=== PATIENT | female | born 1995 | race Caucasian/White ===

== ENCOUNTER 2021-05-17 19:36 | Emergency (ER) | payer OTHER, SELFPAY ==
--- NOTE | ~2021-05-17 | CT_ITS ---
EXAMINATION: CT ABDOMEN AND PELVIS WITH CONTRAST CLINICAL INFORMATION: Right lower quadrant abdominal pain COMPARISON: None TECHNIQUE: Multidetector volumetric images were obtained from the superior aspect of the liver through the pubic symphysis following administration 85 mL of Omnipaque 350 intravenous contrast. Sagittal and coronal reformatted images were obtained on the technologist's workstation. Oral contrast: No This CT examination was performed using dose optimization techniques as appropriate, variously including the following: *Automated exposure control *Adjustment of mA and/or kV according to patient size (this includes techniques or standardized protocols for targeted exams where dose is matched to indication/reason for exam; i.e. extremities or head) *Use of iterative reconstruction technique DLP: 352 mGy-cm FINDINGS: LUNG BASES: The visualized lung bases are unremarkable. LIVER, GALLBLADDER, AND BILIARY TREE: The liver is normal in size, shape, and attenuation. No focal hepatic lesion or biliary ductal dilatation is present. The gallbladder is unremarkable with no evidence of radiopaque gallstones, gallbladder wall thickening, or obvious pericholecystic inflammatory changes. PANCREAS: Unremarkable. SPLEEN: Unremarkable. ADRENAL GLANDS: Unremarkable. KIDNEYS AND URETERS: The kidneys are normal in size, shape, and attenuation. No hydronephrosis, hydroureter, or calculi seen. No perinephric stranding. BLADDER: Unremarkable. GASTROINTESTINAL TRACT: The stomach is unremarkable. Normal caliber small bowel. No obstruction. No colonic wall thickening or inflammatory change. Partial visualization of a normal appendix. No free air. Trace pelvic free fluid. ABDOMINAL WALL: No significant hernia is appreciated. LYMPH NODES: Normal. VASCULAR: Unremarkable. PELVIC VISCERA: Anteverted uterus with IUD in place. Multiple right ovarian follicles. OSSEOUS STRUCTURES: Unremarkable. CT/CT abdomen pelvis w con IMPRESSION: No acute finding in the abdomen or pelvis. Normal appendix. There are multiple right ovarian follicles noted with small amount of pelvic free fluid. Consider ruptured cyst.
[2021-05-17 20:11] VITALS: BP 121/93; PULSE 82; RESP 18; TEMP 37; O2SAT 98; BMI 22.6
--- NOTE | 2021-05-17 23:21 | ED_ITS ---
HPI - Abdominal Pain General Chief Complaint: Abdominal Pain Stated Complaint: abd pain Time Seen by Provider: 05/17/21 22:53 Source: patient Limitations: no limitations History of Present Illness HPI narrative: Patient with 2 days of right lower quadrant abdominal pain. Some nausea no vomiting. No diarrhea or constipation. No urinary symptoms. No vaginal bleeding or discharge. She has an IUD for the past 4 years. No causative or precipitating factors which she is aware. She has never had pain like this before. She denies chance of secondary to IUD Related Data Previous Rx's Medication Instructions Recorded ibuprofen 600 mg tablet 600 mg PO TID PRN #30 tab 05/18/21 Allergies Allergy/AdvReac Type Severity Reaction Status Date / Time latex [LATEX] Allergy Severe SWELLING Unverified 05/06/20 19:12 Review of Systems Constitutional: Denies fever(s) Comments: No chest pain Comments: No dyspnea at Gastrointestinal: Reports as per HPI Comments: No dysuria hesitancy frequency, vaginal bleeding or discharge Musculoskeletal: Reports no additional musculoskeletal complaints Physical Exam Vital Signs: Vital Signs: Last Vital Signs Temp 98.6 F 05/17/21 20:11 Pulse 82 05/17/21 20:11 Resp 18 05/17/21 20:11 BP 121/93 H 05/17/21 20:11 Pulse Ox 98 05/17/21 20:11 Body Mass Index 22.6 Const: Other: Awake and alert no acute distress Resp: Other: Clear and equal bilaterally Cardio: Other: Regular rate and rhythm no murmurs rubs or gallops GI: Other: Tender right lower quadrant with guarding and rebound Skin: Other: Warm pink and dry Course Course Course Narrative: Right lower quadrant abdominal pain. Appendicitis Urinary tract infection Ovarian cyst Ovarian torsion Ectopic IV normal saline IV Toradol IV Zofran 1:55 a.m.. Lab work is unremarkable with a normal white count. CT scan shows no evidence of appendicitis. There are right ovarian follicles with some pelvic free fluid, which in this setting likely represents ruptured ovarian cyst. Results explained to patient and reassured there is no dangerous pathology noted. Ibuprofen for discomfort and discharged home MDM - Abdominal Pain Lab Data Result diagrams: 05/18/21 00:27 05/18/21 00:27 Labs: Lab Results 05/18/21 05/18/21 05/18/21 Range/Units 00:27 00:27 00:29 WBC 10.4 (4.8-10.8) X10*3/uL RBC 5.40 (4.20-5.50) X10*6/uL Hgb 14.0 (12.0-16.0) g/dl Hct 42.8 (37-47) % MCV 79.3 L (80-98) fL MCH 25.9 L (27.0-33.0) pg MCHC 32.7 (31.0-35.0) g/dl RDW 13.0 (11.0-16.0) % Plt Count 175 (160-400) X10*3/uL MPV 12.0 (9.4-12.3) fL Immature Gran % (Auto) 0.3 (0.0-0.4) % Neut % (Auto) 57.1 (45-73) % Lymph % (Auto) 26.3 (20-40) % Todd % (Auto) 12.8 H (2-11) % Eos % (Auto) 3.0 (0-4) % Baso % (Auto) 0.5 (0-2) % Lymph # (Auto) 2.7 (1.2-4.9) X10*3/uL Todd # (Auto) 1.3 H (0.1-1.2) X10*3/uL Eos # (Auto) 0.3 (0.0-0.4) X10*3/uL Baso # (Auto) 0.1 (0.0-0.2) X10*3/uL Abs Immat Gran (auto) 0.03 (0.00-0.03) X10*3/uL Absolute Neuts (auto) 5.9 (2.0-8.3) X10*3/uL Absolute Nucleated RBC 0.000 (0.0-0.012) X10*3/uL Nucleated RBC % (auto) 0.0 (0.0-0.2) /100WBC Sodium 141 (135-145) mmol/L Potassium 3.8 (3.3-5.1) mmol/L Chloride 107 (96-108) mmol/L Carbon Dioxide 25 (22-29) mmol/L Anion Gap 13 (12-20) BUN 10 (9-16) mg/dL Creatinine 0.76 (0.5-1.4) mg/dL Estim Creat Clear Calc 89.4 Estimated GFR > 60 Random Glucose 91 (60-115) mg/dL Calcium 9.4 (8.4-10.2) mg/dL Total Bilirubin 0.5 (0.0-1.0) mg/dL AST 14 (5-31) U/L ALT 8 (0-31) U/L Alkaline Phosphatase 39 (39-117) U/L Total Protein 7.2 (6.5-8.0) g/dL Albumin 4.3 (3.5-5.0) g/dL Urine Color YELLOW Urine Appearance HAZY Urine pH 7.0 (5.0-8.0) Ur Specific [place] 1.020 (1.005-1.025) Urine Protein TRACE (NEG-TRACE) MG/DL Urine Glucose (UA) NEG (NEG) MG/DL Urine Ketones NEG (NEG) MG/DL Urine Blood 1+ H (NEG) Urine Nitrite NEG (NEG) Ur Leukocyte Esterase NEG (NEG) Urine RBC 5-9 H (0) /HPF Urine WBC 0-2 (0-4) /HPF Ur Squamous Epith Cells 2+ /LPF Urine Bacteria 1+ /LPF Urine Mucus 2+ /LPF Urine Test (NEGATIVE) 05/18/21 Range/Units 00:29 WBC (4.8-10.8) X10*3/uL RBC (4.20-5.50) X10*6/uL Hgb (12.0-16.0) g/dl Hct (37-47) % MCV (80-98) fL MCH (27.0-33.0) pg MCHC (31.0-35.0) g/dl RDW (11.0-16.0) % Plt Count (160-400) X10*3/uL MPV (9.4-12.3) fL Immature Gran % (Auto) (0.0-0.4) % Neut % (Auto) (45-73) % Lymph % (Auto) (20-40) % Todd % (Auto) (2-11) % Eos % (Auto) (0-4) % Baso % (Auto) (0-2) % Lymph # (Auto) (1.2-4.9) X10*3/uL Todd # (Auto) (0.1-1.2) X10*3/uL Eos # (Auto) (0.0-0.4) X10*3/uL Baso # (Auto) (0.0-0.2) X10*3/uL Abs Immat Gran (auto) (0.00-0.03) X10*3/uL Absolute Neuts (auto) (2.0-8.3) X10*3/uL Absolute Nucleated RBC (0.0-0.012) X10*3/uL Nucleated RBC % (auto) (0.0-0.2) /100WBC Sodium (135-145) mmol/L Potassium (3.3-5.1) mmol/L Chloride (96-108) mmol/L Carbon Dioxide (22-29) mmol/L Anion Gap (12-20) BUN (9-16) mg/dL Creatinine (0.5-1.4) mg/dL Estim Creat Clear Calc Estimated GFR Random Glucose (60-115) mg/dL Calcium (8.4-10.2) mg/dL Total Bilirubin (0.0-1.0) mg/dL AST (5-31) U/L ALT (0-31) U/L Alkaline Phosphatase (39-117) U/L Total Protein (6.5-8.0) g/dL Albumin (3.5-5.0) g/dL Urine Color Urine Appearance Urine pH (5.0-8.0) Ur Specific [place] (1.005-1.025) Urine Protein (NEG-TRACE) MG/DL Urine Glucose (UA) (NEG) MG/DL Urine Ketones (NEG) MG/DL Urine Blood (NEG) Urine Nitrite (NEG) Ur Leukocyte Esterase (NEG) Urine RBC (0) /HPF Urine WBC (0-4) /HPF Ur Squamous Epith Cells /LPF Urine Bacteria /LPF Urine Mucus /LPF Urine Test NEGATIVE (NEGATIVE) Discharge Plan Discharge Clinical Impression: Ovarian cyst Qualifiers: Laterality: right Qualified Code(s): N83.201 - Unspecified ovarian cyst, right side Patient Disposition: Home, Self-Care Instructions: Ovarian Cyst (ED) Prescriptions: New ibuprofen 600 mg tablet 600 mg PO TID PRN (Reason: pain) Qty: 30 RF: 0 Stand Alone Forms: Work/School Release PMFSH Social History Social History Advance Directives: No Advance Directives Information Provided: Yes Patient : No
[2021-05-18] MEDS: 0.9 % Sodium Chloride 500 ML IV (00:34)
[2021-05-18] MEDS: Ketorolac Tromethamine 15 MG/ML VIAL 30 MG IVPUSH (00:36)
[2021-05-18] MEDS: ondansetron HCL 4 MG/2 ML VIAL IVPUSH (00:36)
[2021-05-18 00:39] LABS: MANUAL DIFF FLAG NO
[2021-05-18 00:40] LABS: Basophils Absolute Auto 0.1 X10*3/uL (0.0-0.2); Basophils Percent Auto 0.5 % (0-2); Eosinophils Absolute Auto 0.3 X10*3/uL (0.0-0.4); Hematocrit 42.8 % (37-47); Imm Gran Abs Auto 0.03 X10*3/uL (0.00-0.03); Imm Gran Pct Auto 0.3 % (0.0-0.4); Lymphocytes Absolute Auto 2.7 X10*3/uL (1.2-4.9); Lymphocytes Percent Auto 26.3 % (20-40); Mean Corpuscular HGB Conc 32.7 g/dl (31.0-35.0); Mean Corpuscular Hemoglobin 25.9 pg (27.0-33.0); Mean Corpuscular Volume 79.3 fL (80-98); Monocytes Absolute Auto 1.3 X10*3/uL (0.1-1.2); Monocytes Percent Auto 12.8 % (2-11); Neutrophils Absolute Auto 5.9 X10*3/uL (2.0-8.3); Neutrophils Percent Auto 57.1 % (45-73); Platelet Count 175 X10*3/uL (160-400); White Blood Count 10.4 X10*3/uL (4.8-10.8)
[2021-05-18 00:42] LABS: Appearance Urine HAZY; Color Urine YELLOW; Glucose Urine UA NEG (NEG); Leukocyte Esterase Urine NEG (NEG); Nitrite Urine NEG (NEG); UACC Culture Trigger NO; Urine Blood 1+ (NEG); Urine Ketones NEG (NEG); Urine Protein TRACE MG/DL (NEG-TRACE)
[2021-05-18 00:43] LABS: UPreg QC Valid YES; Urine Pregnancy NEGATIVE (NEGATIVE)
[2021-05-18 00:51] LABS: Bacteria Urine 1+ /LPF; Mucus Urine 2+ /LPF; Squamous Epithelial Cell Urine 2+ /LPF; WBC Urine 0-2 /HPF (0-4)
[2021-05-18 00:54] LABS: Alanine Aminotransferase 8 U/L (0-31); Albumin Level 4.3 g/dL (3.5-5.0); Alkaline Phosphatase 39 U/L (39-117); Anion Gap 13 (12-20); Aspartate Amino Transferase 14 U/L (5-31); Bilirubin Total 0.5 mg/dL (0.0-1.0); Blood Urea Nitrogen 10 mg/dL (9-16); Calcium 9.4 mg/dL (8.4-10.2); Carbon Dioxide 25 mmol/L (22-29); Chloride 107 mmol/L (96-108); Creatinine Clr Calc Pharmacy 89.4; Estimated Glomerular Filt Rate > 60; Glucose Random 91 mg/dL (60-115); Potassium 3.8 mmol/L (3.3-5.1); Sodium 141 mmol/L (135-145); Total Protein 7.2 g/dL (6.5-8.0)
[2021-05-18] MEDS: iohexoL 350 MG/ML 100 ML INFUS..BTL 85 ML IV (01:42)
[2021-05-18 02:00] VITALS: BP 128/75; PULSE 90; RESP 16; O2SAT 100
[2021-05-18 02:14] VITALS: RESP 16
== END 2021-05-18 02:25 | disposition home or self-care (01) ==
PROVIDERS: Emergency Provider Emergency Medicine; PCP Internal Medicine
DX: N83.201 Unspecified ovarian cyst, right side (principal); R10.31 Right lower quadrant pain; Z79.899 Other long term (current) drug therapy
CPT/HCPCS: 36415; 74177; 80053; 81001; 81025; 85025; 96361; 96374; 96375; 99284; J1885; J2405; Q9967

== ENCOUNTER 2023-07-13 19:16 | Emergency (ER) | payer OTHER, SELFPAY ==
[2023-07-13 19:40] VITALS: BP 133/68; PULSE 96; RESP 16; TEMP 37.1; O2SAT 100; BMI 23.8
--- NOTE | 2023-07-13 19:49 | ED_ITS ---
HPI - General Adult General Chief complaint: Skin/Abscess/Foreign Body Stated complaint: rash on stomach, chest Time Seen by Provider: 07/13/23 19:49 Source: patient Mode of arrival: ambulatory Limitations: no limitations History of Present Illness HPI narrative: Patient is a 27-year-old female presenting to the emergency department with complaint of pruritic rash to trunk, upper legs for the past month. Denies any new foods, detergents, medications. Denies fevers. Denies any systemic symptoms. States she has been attempting to schedule an appointment with new PCP but is unable to be seen for several months. MD complaint: Rash Onset (ago): month(s) Location: chest, abdomen and lower extremity Severity: moderate Quality: other (Pruritic) Associated symptoms: denies other symptoms Treatments prior to arrival: none Related Data Previous Rx's Medication Instructions Recorded ibuprofen 600 mg tablet 600 mg PO TID PRN pain #30 tabs 05/18/21 clotrimazole 1 % topical cream 1 appl topical BID 4 weeks #45 07/13/23 grams Allergies Allergy/AdvReac Type Severity Reaction Status Date / Time latex [LATEX] Allergy Severe SWELLING Unverified 05/06/20 19:12 Review of Systems Review of Systems: As per HPI Yes all other systems are reviewed and are negative Constitutional: Constitutional: Reports as per HPI [facility] Social History Advance Directives: No Advance Directives Information Provided: No Physical Exam ED Vital Signs: Vital Signs - 24 hr 07/13/23 19:40 Temperature 98.7 F Pulse Rate 96 Respiratory Rate 16 Blood Pressure 133/68 Pulse Oximetry 100 Oxygen Delivery Method Room Air BMI result Body Mass Index 23.8 Vital signs have been reviewed and appear to be correct. Blood pressure normal. Heart rate normal. Respiratory rate normal. Temperature normal. Oxygen saturation normal. Const General: cooperative, healthy appearing and no acute distress Orientation/consciousness: oriented to person, oriented to place, oriented to time and patient oriented x3 Limitations: no limitations HENMT Head: Yes normocephalic and Yes atraumatic Ears: external ears normal General nose exam: Normal external nose present Face and sinus: Yes face symmetric Mouth: oropharynx normal and moist mucous membranes Throat: Yes uvula midline Eyes Pupils: Equal, round and reactive pupils present Neck Neck: Yes normal visual inspection and Yes supple Resp Effort & Inspection: normal respiratory effort and able to speak in complete sentences Auscultation: clear to auscultation bilaterally Cardio Rate: regular rate Rhythm: regular rhythm Heart sounds: S1 normal heart sound present and S2 normal heart sound present GI Palpation (GI): Soft to palpation and nontender Auscultation: normoactive bowel sounds General: Yes no CVA tenderness Back/Spine/Pelvis Back: no CVA tenderness Skin General skin exam: elasticity normal and turgor normal Rashes: rashes noted macules diffuse multiple locations size (ranging from <1- 3cm), color blanching and red, morphology oval, surface scaly and other (negative Nikolsky); fluctuant not assessed and nontender Neuro General: oriented to person, oriented to place, oriented to time, patient oriented x3, moves all extremities, no focal motor deficits and CN's II-XI intact bilaterally Cranial nerves: Yes Equal, round and reactive pupils present Cognition (Neuro): normal cognition Extrem General: Yes full ROM, Yes no pedal edema and Yes no calf tenderness Psych Mental Status: mental status grossly normal Affect: normal affect Thought process: Normal thought process present Medical Decision Making Medical Decision Making MDM Narrative: Patient is a 27-year-old female presenting to the emergency department with complaint of pruritic rash to trunk, upper legs for the past month. On exam patient is awake, A+Ox3, VS WNL, afebrile, normal neurological exam without focal deficits, physical exam findings as above. Given reported symptoms and physical exam findings, rash is consistent with tinea corporis. Not consistent with zoster, contact dermatitis. No red flag findings concerning for DRESS, TEN/SJS, TTP, DIC, necrotizing fasciitis, TSS. No rash to palms/soles concerning for secondary syphillis. Will prescribe clotrimazole cream. Advised patient to return to the ED if symptoms do not begin to improve over the next 1-2 weeks or symptoms worsen. Instructed patient to continue attempting to schedule appointment with new PCP. Return precautions discussed. Patient verbalized understanding of and agreement with plan. Differential Diagnosis Differential Diagnoses: The differential diagnosis associated with the prese ntation includes As per MDM. External Record Review External record reviewed: Inpatient record, Office record and Outpatient record Prescription Management I considered prescription management with: Other Discharge Plan Discharge Clinical Impression: Tinea corporis Patient Disposition: Home, Self-Care Instructions: Tinea Corporis (ED) Additional Instructions: You were evaluated in the emergency department for a rash today. You are being treated for tinea corporis with clotrimazole cream. Please use the cream as prescribed. Return to the emergency department if symptoms do not begin to improve over the next 1-2 weeks. Return to the emergency department if you develop worsening rash, pain, fever, body aches, shortness of breath, difficulty breathing, or any other concerning symptoms. Prescriptions: New clotrimazole 1 % cream 1 appl topical BID 28 Days Qty: 45 0RF No Action ibuprofen 600 mg tablet 600 mg PO TID PRN (Reason: pain) Qty: 30 0RF Referrals: [facility] [Provider Group] [facility] [Provider Group] [facility] [Provider Group]
== END 2023-07-13 20:10 | disposition home or self-care (01) ==
PROVIDERS: Emergency Provider Emergency Medicine Emergency Medical Services; PCP Nurse Practitioner Family
DX: B35.4 Tinea corporis (principal); L29.9 Pruritus, unspecified; R21 Rash and other nonspecific skin eruption
CPT/HCPCS: 99282; 99283

== ENCOUNTER 2024-02-08 22:18 | Emergency (ER) | payer BC, SELFPAY ==
--- NOTE | ~2024-02-08 | CT_ITS ---
EXAMINATION: CT head/brain wo IV con CLINICAL INFORMATION: Reason for Exam migraine COMPARISON: None. TECHNIQUE: Contiguous axial imaging was performed from the skull base to vertex without intravenous contrast. Sagittal and coronal reformatted images were obtained. This CT examination was performed using dose optimization techniques as appropriate, variously including the following: * Automated exposure control * Adjustment of mA and/or kV according to patient size (this includes techniques or standardized protocols for targeted exams where dose is matched to indication/reason for exam; i.e. extremities or head) Use of iterative reconstruction technique DLP: 566.46 mGy-cm FINDINGS: No acute osseous or soft tissue abnormality. The mastoids are clear. There is mild mucosal thickening along the left sphenoid right maxillary sinus and moderate to severe mucosal thickening and opacification of the left ethmoid complex and left maxillary sinus. There is opacification of the left ostiomeatal unit and and anterior left nasal cavity. There is no evidence of acute intracranial hemorrhage or territorial infarction. No abnormal mass effect or midline shift is seen. Pena to white matter differentiation is well preserved. No extra-axial fluid collections are identified. No hydrocephalus. No significant volume loss. There is no abnormal attenuation within the brain parenchyma. CT/CT head/brain wo IV con IMPRESSION: 1. No acute intracranial abnormality including hemorrhage, mass effect, hydrocephalus, or acute territorial edematous infarction. 2. Paranasal sinus inflammatory disease, most prominently involving the left ethmoid and maxillary sinuses which demonstrate moderate to severe opacification and mucosal thickening.
[2024-02-08 22:21] VITALS: BP 124/79; PULSE 101; RESP 20; TEMP 37; O2SAT 99; BMI 21.9
[2024-02-08 22:35] LABS: MANUAL DIFF FLAG NO
[2024-02-08 22:37] LABS: Basophils Absolute Auto 0.1 X10*3/uL (0.0-0.2); Basophils Percent Auto 0.4 % (0-2); Eosinophils Absolute Auto 0.3 X10*3/uL (0.0-0.4); Eosinophils Percent Auto 1.9 % (0-4); Hematocrit 41.1 % (37.0-47.0); Hemoglobin 13.8 g/dl (12.0-16.0); Imm Gran Abs Auto 0.06 X10*3/uL (0.00-0.03); Imm Gran Pct Auto 0.4 % (0.0-0.4); Lymphocytes Percent Auto 20.9 % (20-40); Mean Corpuscular HGB Conc 33.6 g/dl (31.0-35.0); Mean Corpuscular Hemoglobin 26.2 pg (27.0-33.0); Mean Platelet Volume 11.4 fL (9.4-12.3); Monocytes Absolute Auto 1.4 X10*3/uL (0.1-1.2); Monocytes Percent Auto 9.6 % (2-11); Neutrophils Absolute Auto 9.6 x10*3/uL (2.0-8.3); Neutrophils Percent Auto 66.8 % (45-73); Platelet Count 211 X10*3/uL (160-400); Red Blood Count 5.27 X10*6/uL (4.20-5.50); Red Cell Distribution Width 12.9 % (11.0-16.0); White Blood Count 14.3 X10*3/uL (4.8-10.8)
[2024-02-08 22:50] LABS: Alanine Aminotransferase 7 U/L (0-31); Albumin Level 4.4 g/dL (3.5-5.0); Alkaline Phosphatase 61 U/L (39-117); Anion Gap 14 (12-20); Aspartate Amino Transferase 12 U/L (5-31); Bilirubin Total 0.4 mg/dL (0.0-1.0); Blood Urea Nitrogen 14 mg/dL (9-16); Calcium 9.9 mg/dL (8.4-10.2); Carbon Dioxide 24 mmol/L (22-29); Chloride 106 mmol/L (96-108); Estimated Glomerular Filt Rate > 60; Glucose Random 98 mg/dL (60-115); Potassium 4.2 mmol/L (3.3-5.1); Sodium 140 mmol/L (135-145); Total Protein 7.8 g/dL (6.5-8.0)
[2024-02-08 23:13] LABS: Influenza A PCR NEGATIVE (Negative); Influenza B PCR NEGATIVE (Negative); Resp Syncy Virus RNA Qual PCR NEGATIVE (Negative); SARS COV2 PCR INHOUSE NEGATIVE (Negative)
[2024-02-09] MEDS: 0.9 % Sodium Chloride 1,000 ML 999 ML IV (00:20)
[2024-02-09 00:47] VITALS: BP 135/74; PULSE 99; RESP 20; TEMP 36.8; O2SAT 100
--- NOTE | 2024-02-09 00:54 | ED_ITS ---
HPI - Headache General Chief Complaint: Headache Stated Complaint: Migraine Time Seen by Provider: 02/08/24 23:07 Source: patient and RN notes reviewed Mode of arrival: ambulatory Limitations: no limitations History of Present Illness ED Provider: Sierra Light PA-C HPI Narrative: This is a 28-year-old, with a history of migraines, presents emergency department with complaints of headache x3 days. Patient states that 3 days ago she developed a severe headache. She states that she has been taking ibuprofen and Tylenol without any relief. She states that this migraine is different than her typical migraines as her migraines typically responded well to ibuprofen and Tylenol. She states that she has a history of chronic sinus infections. She does report over the last 3 days she has felt increased congestion. Denies any fevers, she endorses chills. She does report that the pain is throughout her entire head, face and her neck.. Denies dizziness, blurred vision, chest pain, shortness of breath, abdominal pain, nausea, vomiting or diarrhea. She states that the pain worsens with sound and light. No other complaints or concerns at this time. MD elicited complaint: headache and migraine Pertinent past history: migraines Onset (ago): day(s) Onset description: suddenly Location: band-like Severity: moderate Quality & Timing: aching and throbbing Exacerbating factors: none Relieving factors: nothing Associated symptoms: none Treatments prior to arrival: none Related Data Previous Rx's ?Medication ?Instructions ?Recorded ibuprofen 600 mg tablet 600 mg PO TID PRN pain #30 tabs 05/18/21 clotrimazole 1 % topical cream 1 appl topical BID 4 weeks #45 07/13/23 grams amoxicillin 875 mg-potassium 1 tab PO BID 7 days #14 tabs 02/09/24 clavulanate 125 mg tablet Allergies Allergy/AdvReac Type Severity Reaction Status Date / Time latex [LATEX] Allergy Severe SWELLING Verified 02/08/24 22:23 Review of Systems 2 Review of Systems: Yes all other systems are reviewed and are negative Constitutional: Constitutional: Reports as per [facility] Social History Social History Advance Directives: No Advance Directives Information Provided: Yes Do you have a plan to hurt others: No Plan Physical Exam 2 Vital Signs: Vital Signs: Last Vital Signs Temp 98.5 F 02/09/24 02:14 Pulse 62 02/09/24 02:14 Resp 16 02/09/24 02:14 BP 114/59 L 02/09/24 02:14 Pulse Ox 98 02/09/24 02:14 O2 Del Method Room Air 02/09/24 02:14 BMI result Body Mass Index 21.9 Const: General: cooperative, comfortable and no acute distress O rientation/consciousness: patient oriented x3 Limitations: no limitations HEENT: Other: Tenderness palpation along the maxillary and ethmoid sinuses. No frontal sinus tenderness on examination. Head: Yes normal to inspection, Yes normocephalic and Yes atraumatic E ars: hearing grossly normal bilaterally and TM's normal bilaterally General nose exam: Normal external nose present Face and sinus: Yes normal facial exam Mouth: Normal oral and palatal mucosa present, oropharynx normal and moist mucous membranes Throat: Yes posterior oropharynx normal Eyes: General: appearance normal, both eyes and all related structures E yelids: Yes eyelids normal Conjunctivae: conjunctivae normal Sclerae: s clerae normal Pupils: Equal, round and reactive pupils present EOM: EOMs intact bilaterally Neck: Neck: Yes normal visual inspection, Yes full ROM and Yes no lymphadenopathy Lymphatic: no lymphadenopathy noted Chest: Chest palpation & inspection: normal inspection of the chest Resp: Effort & Inspection: normal respiratory effort and able to speak in complete sentences Auscultation: clear to auscultation bilaterally, no crackles, no rales, no rhonchi and no wheezes Cardio: Rate: regular rate Rhythm: regular rhythm Heart sounds: S1 normal heart sound present and S2 normal heart sound present GI: Inspection: Yes normal to inspection Skin: General skin exam: no rashes or lesions noted Trauma: no lacerations or abrasions Wounds: no wounds Neuro: General: patient oriented x3 and moves all extremities Cranial nerves: Yes CN's II-XII intact bilaterally and Yes Equal, round and reactive pupils present Cognition (Neuro): normal cognition Gait exam (Neuro): N ormal gait present Motor exam (neuro): 5/5 motor strength present throughout and Pronator motor function not present Extrem: General: Yes normal to inspection Right upper extremity: normal to inspection Left upper extremity: normal to inspection Right lower extremity: normal to inspection Left lower extremity: normal to inspection Course Reevaluation(s) Reevaluation #1: CT head findings concerning for sinusitis, otherwise no evidence of intracranial abnormality. Given patient has tenderness palpation along her maxillary and ethmoid sinuses, will treat as sinusitis as well as migraine headache. Patient medicated with Augmentin Neumann Toradol, Reglan, Benadryl and IV fluids. Reevaluation #2: Patient re-evaluated, feeling much better. Will treat as sinus infection and migraine. Patient given return precautions. Also given referral to ear nose and throat due to chronic sinusitis. Patient understands and agrees with plan. Patient stable for discharge. Time: 02:27 Medications Administered Discontinued Medications Generic Name Dose Route Start Last Admin Trade Name Freq PRN Reason Stop Dose Admin Amoxicillin/Clavulanate Potassium 875 mg 02/09/24 01:28 02/09/24 01:41 Amoxicillin/Potassium Clav 875 Mg Tablet PO 02/09/24 01:29 875 mg ONCE ONE Administration Diphenhydramine HCl 50 mg 02/09/24 01:28 02/09/24 01:41 Diphenhydramine Hcl 50 Mg/Ml Vial IVPUSH 02/09/24 01:29 50 mg ONCE ONE Administration Sodium Chloride 1,000 mls @ 999 mls/hr 02/09/24 00:15 02/09/24 01:41 Ns IV 02/09/24 01:15 Infused .Q1H1M CORONA Infusion Ketorolac Tromethamine 30 mg 02/09/24 01:29 02/09/24 01:41 Ketorolac Tromethamine 30 Mg/Ml Vial IVPUSH 02/09/24 01:30 30 mg ONCE ONE Administration Metoclopramide HCl 10 mg 02/09/24 01:28 02/09/24 01:40 Metoclopramide Hcl 10 Mg/2 Ml Vial IVPUSH 02/09/24 01:29 10 mg ONCE ONE Administration Medical Decision Making Medical Decision Making [facility] Narrative: this is a 28-year-old female who presents emergency department with complaints of severe headache for the last 3 days. On arrival, vital signs within normal limits. She is speaking full sentences in alert and oriented x4. She is neurologically intact. She states that this pain is different than her migraine she has had in the past. He has no focal deficits on examination. She reports increased nasal congestion over the last several days. She states that she has a history of chronic sinus infections and was previously seen by ENT several years ago. Given atypical presentation of her migraines, will obtain head CT to rule out ICH, mass. Other differential diagnoses include viral syndrome, sinusitis, migraine headache, tension headache. Plan: Labs, CT head, IV migraine cocktail Differential Diagnosis Differential Diagnoses: The differential diagnosis associated with the presentation includes See above Admission/Observation Consideration of admission/observation: Escalation of care including admission/observation considered Escalation of care including admission/observation considered however given workup today not warranted at this time. Lab Data MDM Lab Attestation statement: I reviewed the patient's lab results. Slight leukocytosis at 14.3 with shift. Chemistry within normal limits, viral swabs negative. Negative strep 02/08/24 22:31 02/08/24 22:31 Labs: Lab Results 02/08/24 02/09/24 Range/Units 22:31 01:02 WBC 14.3 H (4.8-10.8) X10*3/uL RBC 5.27 (4.20-5.50) X10*6/uL Hgb 13.8 (12.0-16.0) g/dl Hct 41.1 (37.0-47.0) % MCV 78.0 L (80.0-98.0) fL MCH 26.2 L (27.0-33.0) pg MCHC 33.6 (31.0-35.0) g/dl RDW 12.9 (11.0-16.0) % Plt Count 211 (160-400) X10*3/uL MPV 11.4 (9.4-12.3) fL Immature Gran % (Auto) 0.4 (0.0-0.4) % Neut % (Auto) 66.8 (45-73) % Lymph % (Auto) 20.9 (20-40) % Cottle % (Auto) 9.6 (2-11) % Eos % (Auto) 1.9 (0-4) % Baso % (Auto) 0.4 (0-2) % Lymph # (Auto) 3.0 (1.2-4.9) X10*3/uL Cottle # (Auto) 1.4 H (0.1-1.2) X10*3/uL Eos # (Auto) 0.3 (0.0-0.4) X10*3/uL Baso # (Auto) 0.1 (0.0-0.2) X10*3/uL Abs Immat Gran (auto) 0.06 H (0.00-0.03) X10*3/uL Absolute Neuts (auto) 9.6 H (2.0-8.3) x10*3/uL Absolute Nucleated RBC 0.000 (0.0-0.012) X10*3/uL Nucleated RBC % (auto) 0.0 (0.0-0.2) /100WBC Sodium 140 (135-145) mmol/L Potassium 4.2 (3.3-5.1) mmol/L Chloride 106 (96-108) mmol/L Carbon Dioxide 24 (22-29) mmol/L Anion Gap 14 (12-20) BUN 14 (9-16) mg/dL Creatinine 0.77 (0.5-1.4) mg/dL Estim Creat Clear Calc 86.0 Estimated GFR > 60 Random Glucose 98 (60-115) mg/dL Calcium 9.9 (8.4-10.2) mg/dL Total Bilirubin 0.4 (0.0-1.0) mg/dL AST 12 (5-31) U/L ALT 7 (0-31) U/L Alkaline Phosphatase 61 (39-117) U/L Total Protein 7.8 (6.5-8.0) g/dL Albumin 4.4 (3.5-5.0) g/dL Influenza Type A (PCR) NEGATIVE (Negative) Influenza Type B (PCR) NEGATIVE (Negative) RSV RNA Qual (PCR) NEGATIVE (Negative) SARS-CoV-2 RNA (RT-PCR) NEGATIVE (Negative) S. pyogenes GrpA DREAD Negative (Negative) Radiology Impression Discussion of test interpretation with radiology: I have reviewed the radiologist's reading. Radiologist Impression: CT/CT head/brain wo IV con IMPRESSION: 1. No acute intracranial abnormality including hemorrhage, mass effect, hydrocephalus, or acute territorial edematous infarction. 2. Paranasal sinus inflammatory disease, most prominently involving the left ethmoid and maxillary sinuses which demonstrate moderate to severe opacification and mucosal thickening. Discharge Plan Discharge Clinical Impression: Migraine Qualifiers: Migraine type: other Sinusitis Qualifiers: Sinusitis location: other Patient Disposition: Home, Self-Care Instructions: Sinusitis (ED), Migraine Headache (ED) Additional Instructions: You were seen in the emergency department due to ongoing headache. Your labs today were reassuring. Your CT scan showed that you have evidence of a sinus infection. Please take prescribed antibiotic as directed. Finish the entire course even if your feeling better. Drink plenty of fluids get plenty of rest. Take ibuprofen or Tylenol as needed for pain and symptoms. You can follow-up with the research animal facility supervisor for further management of chronic sinus infections. If any new or worsening symptoms occur including but not limited to severe headache, changes in vision, dizziness, chest pain, shortness of breath, please return for re-evaluation. Prescriptions: New amoxicillin-pot clavulanate 875-125 mg tablet 1 tab PO BID 7 Days Qty: 14 0RF No Action ibuprofen 600 mg tablet 600 mg PO TID PRN (Reason: pain) Qty: 30 0RF clotrimazole 1 % cream 1 appl topical BID 28 Days Qty: 45 0RF Referrals: Prosper Houser [Physician] - Print Language: Icelandic
[2024-02-09 01:17] LABS: IDNOW Serial# 08D9AD1C; Strep A Nucleic Acid Negative (Negative)
[2024-02-09] MEDS: Metoclopramide HCl 10 MG/2 ML VIAL IVPUSH (01:40)
[2024-02-09] MEDS: Ketorolac Tromethamine 30 MG/ML VIAL IVPUSH (01:41)
[2024-02-09] MEDS: Amoxicillin/Potassium Clav 875 MG TABLET PO (01:41)
[2024-02-09] MEDS: diphenhydrAMINE HCL 50 MG/ML VIAL IVPUSH (01:41)
[2024-02-09 02:14] VITALS: BP 114/59; PULSE 62; RESP 16; TEMP 36.9; O2SAT 98
[2024-02-09 02:43] VITALS: BP 114/59; PULSE 62; RESP 16; TEMP 36.9; O2SAT 98
== END 2024-02-09 02:44 | disposition home or self-care (01) ==
PROVIDERS: Physician Assistant Medical; Emergency Provider Emergency Medicine; PCP Nurse Practitioner Family
DX: G43.909 Migraine, unspecified, not intractable, without status migrainosus (principal); J32.9 Chronic sinusitis, unspecified; R11.2 Nausea with vomiting, unspecified; Z03.818 Encounter for observation for suspected exposure to other biological agents ruled out; Z79.899 Other long term (current) drug therapy
CPT/HCPCS: 0241U; 70450; 80053; 85025; 87651; 96361; 96374; 96375; 99284; J1200; J1885; J2765

== ENCOUNTER 2025-07-25 16:41 | Emergency (ER) | payer OTHER, SELFPAY ==
--- OUTSIDE RECORDS SUMMARY | 2024-05-01 05:00 | XMS_ITS ---
Author Organization [employer] [facility] Address [address] [place] [id number] Care Team Providers Care Mold Inspector Name Role Phone AMIE GREEN, NILS Primary Care Provider Unavail DINA Machado Unavailable [phone] Allergies Allergen (clinical drug ingredient) Drug/Non Drug Allergy documented on EMR Reaction Allergy Type Onset Date Status Latex Latex Swelling Allergy Active REASON FOR VISIT ? YEAST INFECTION Medications Medication SIG (Take, Route, Frequency, Duration) Notes Start Date End Date Status Ibuprofen 600 MG 1 tablet with food o r milk as needed Orally Three times a day prn Active Mirena (52 MG) 20 MCG/24HR as directed Intrauterine inserted 2019 Active Encounters Encounter Location Date Provider Diagnosis [facility] [employer] [address] [address] 05/01/2024 DINA BAKER Plan Of Treatment No Information Progress Notes * VIOLETTE RODRIGUEZTERESAOB:11[birth year]24 (29 yo F)Acc No.[id number]:05/01/2024 PROGRESS NOTES Patient: LIVE BENITES Provider: Krista BAKER MD :1995 A ge:28 Y S ex:Female Date:05/01/2024 Address:[address] [place], [place] [id number] Pcp:NILS HOLLOWAY NP Subjective: * Chief Complaints: * 1 . ? YEAST INFECTION. * Medical History: A nxiety disorder, unspecified, COVID-19, Displacement of intrauterine contraceptive device, initial encounter. * Telephone Clerk History: G ravida/ Para 2 /1. S exual activity c urrently sexually active, with men. L ast Pap Smear: NIL, No Ecc's. L MP and menses N one w/ IUD. H istory of STD's: n one. B irth Control: Jonathan martinez, placed in early [address] Rothman. M enarche 1 3. G ardasil: h as not had vaccine. * OB History: T otal pregnancies 2 . T otal living children 1 . N VD 1 . A bortion(s) 1 . P regnancy # 1: n ormal spontaneous vaginal delivery (), 04/04/2016, Jenhziel (boy), 6lb 1oz, hyperemesis. P regnancy # 2: e lective terminations of (ETOP), medically, no complications. * Medications: T aking Mirena (52 MG) 20 MCG/24HR Intrauterine Device as directed Intrauterine , Notes to Pharmacist: inserted 2019, Taking Ibuprofen 600 MG Tablet 1 tablet with food or milk as needed Orally Three times a day , Notes to Pharmacist: prn, Discontinued Bactrim DS 800-160 MG Tablet 1 tablet Orally Twice a day * Allergies: L atex: Swelling - Allergy. Objective: * Vitals: Assessment: Plan: * Treatment: * Images: Billing Information: * Visit Code: * Procedure Codes: * Electronic signature of DINA BAKER MD on 07/25/2025 at 09:51 PM EST Sign off status: Pending * Provider: Krista BAKER MD Date: 0 05/01/2024 Generated for Jane nguyen/Lu/Kobeitting on: 1 09/25/2024 09:51 PM EST
--- OUTSIDE RECORDS SUMMARY | 2024-07-22 04:30 | XMS_ITS ---
Author Organization [facility] Address [address] [facility] [address] [place] [address] Care Team Providers Care Mushroom Laborer Name Role Phone NILS HOLLOWAY NP Primary Care Provider Unavail DINA Machado Unavailable [phone] REASON FOR VISIT Annual SPARE HAND Physical Encounters Encounter Location Date Provider Diagnosis [facility] [address] [place] [id number] 07/22/2024 DINA BAKER Encounter for gynecological examination (general) (routine) without abnormal findings Z01.419 ; Encounter for screening for infections with a predominantly sexual mode of transmission Z11.3 and Presence of (intrauterine) contraceptive device Z97.5 Assessments Encounter Date Diagnosis (ICD Code) Assessment Notes Treatment Notes Treatment Clinical Notes Section Notes 07/22/2024 Encounter for gynecological examination (general) (routine) without abnormal findings (ICD-10 - Z01.419) Discussed cervical cancer screening with cytology every 3 years as per ASCCP guidelines. Advised continued annual pelvic exams. Patient encouraged to increase her level of exercise. SBE technique encouraged/tau ght. Safe sexual practices and STI prevention discussed. 07/22/2024 Encounter for screening for infections with a predominantly sexual mode of transmission (ICD-10 - Z11.3) 07/22/2024 Presence of (intrauterine) contraceptive device (ICD-10 - Z97.5) Plan Of Treatment Treatment Notes Assessment Notes Encounter for gynecological examination (general) (routine) without abnormal findings Discussed cervical cancer screening with cytology every 3 years as per ASCCP guidelines. Advised continued annual pelvic exams. Patient encouraged to increase her level of exercise. SBE technique encouraged/taught. Safe sexual practices and STI prevention discussed. Next Appt Details Follow Up: 1 Year, Reason: Y early Spine Supervisor Exam Progress Notes * VIOLETTE RODRIGUEZNDOB:[birth year] (29 yo F)Acc No.[id number]:07/22/2024 PROGRESS NOTES Patient: LIVE BENITES Provider: Krista BAKER MD :1995 A ge:28 Y S ex:Female Date:07/22/2024 Address:[address] [place] [address] Pcp:NILS HOLLWOAY NP Subjective: * Chief Complaints: * 1 . Annual SPARE HAND Physical. 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 S he has been in state of good health since her last exam She has the following concerns: S he has received the [employer] Covid-19 vaccine. R elationship status: *partnered for a 2 years. She is sexually active. Sexual partner(s): male. She does* wish to have STI testing. M enses: *occasional spotting, associated with cramping C ontraception: Mirena - placed in early 2019. At a previous visit, the IUD threads were not visible and ultrasound (12/2022) showed the IUD to be in the expected position, with the threads terminating in the endocervical canal. T he patient has never had an abnormal pap smear. Her most recent pap smear was 12/12/22 - NIL. Next due for pap in 2025 . T he patient does *not exercise. * ROS: A nnual Spine Supervisor Exam ROS: Bowel habit changes d enies. B ladder symptoms d enies. V aginal discharge, unusual d enies. V aginal itch or odor d enies. w eight or appetite changes d enies. C hest pains, SOB d enies. d epression d enies.? B reast: Denies B reast lump. D enies N ipple discharge.? H ematology: Denies S wollen glands. S kin: Patient denies c hanging moles. P sychiatric: Denies A nxiety. 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 HEAD: n ormocephalic, atraumatic. NECK/THYROID: n cass supple, full range of motion,thyroid normal. LYMPH NODES: n o axillary or supraclavicular adenopathy.? SKIN: n ormal,good turgor,no rashes,no suspicious lesions.? BREASTS: n ormal,no dimpling,no discharge,no drainage,no masses palpable bilaterally,nontender. ABDOMEN: s oft, non-tender, non distended without masses or hepatosplenomegay. BACK: n o costovertebral angle tenderness. FEMALE GENITOURINARY: V ulva without lesions or masses, vagina pink without abnormal discharge, lesions or masses, cervix appears normal and is not tender to palpation, IUD threads seen, uterus is normal size, mobile, nontender and anteverted, ovaries are not palpable. NEUROLOGIC: a lert and oriented,gait normal. PSYCH: a lert, oriented,cognitive function intact,cooperative with exam,good eye contact,mood/affect full range,speech clear. Assessment: * Assessment: 1. E ncounter for screening for infections with a predominantly sexual mode of transmission - Z11.3 2 . E ncounter for gynecological examination (general) (routine) without abnormal findings - Z01.419 (Primary) 3 . P resence of (intrauterine) contraceptive device - Z97.5 Plan: * Treatment: * Follow Up: 1 Year (Reason: Yearly Spine Supervisor Exam) * Images: Billing Information: * Visit Code: [id number] Preventive Care Est Pt. Age 18-39. 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 She has been in state of good health since her last exam She has the following concerns: She has received the [employer] Covid-19 vaccine. Relationship status: *partnered for a 2 years. She is sexually active. Sexual partner(s): male. She does* wish to have STI testing. Menses: *occasional spotting, associated with cramping Contraception: Mirena - placed in early 2019. At a previous visit, the IUD threads were not visible and ultrasound (12/2022) showed the IUD to be in the expected position, with the threads terminating in the endocervical canal. The patient has never had an abnormal pap smear. Her most recent pap smear was 12/12/22 - NIL. Next due for pap in 2025 . The patient does *not exercise. 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 HEAD: normocephalic, atrau matic NECK/THYROID: neck supple, full ra nge of motion, thyroid normal ABDOMEN: soft, non-tender, no n distended without masses or hepatosplenomegay NEUROLOGIC: alert and oriented, gait normal SKIN: normal, good turgor, no rashes, no suspicious lesions BACK: no costovertebral an gle tenderness BREASTS: normal, no dimpling, no discharge, no drainage, no masses palpable bilaterally, nontender LYMPH NODES: no axillary or supra clavicular adenopathy PSYCH: alert, oriented, cog nitive function intact, cooperative with exam, good eye contact, mood/affect full range, speech clear FEMALE GENITOURINARY: Vulva without lesi ons or masses, vagina pink without abnormal discharge, lesions or masses, cervix appears normal and is not tender to palpation, IUD threads seen, uterus is normal size, mobile, nontender and anteverted, ovaries are not palpable
--- OUTSIDE RECORDS SUMMARY | 2024-12-01 10:00 | XMS_ITS ---
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 Name Role Phone NILS HOLLOWAY NP Primary Care Provider Unavail able DINA BAKER Unavailable [phone] Allergies Allergen (clinical drug ingredient) Drug/Non Drug Allergy documented on EMR Reaction Allergy Type Onset Date Status Latex Latex Swelling Allergy Active REASON FOR VISIT DISCHARGE Medications Medication SIG (Take, Route, Frequency, Duration) Notes Start Date End Date Status Ibuprofen 600 MG 1 tablet with food o r milk as needed Orally Three times a day prn Active Mirena (52 MG) 20 MCG/24HR as directed Intrauterine inserted 2019 Active Encounters Encounter Location Date Provider Diagnosis [employer] [address] [place] [id number] 12/01/2024 DINA BAKER Other specified noninflammatory disorders of vagina N89.8 ; Acute vaginitis N76.0 ; Urogenital trichomoniasis, unspecified A59.00 and Acute candidiasis of vulva and vagina B37.31 Assessments Encounter Date Diagnosis (ICD Code) Assessment Notes Treatment Notes Treatment Clinical Notes Section Notes 12/01/2024 Other specified noninflammatory disorders of vagina (ICD-10 - N89.8) Vaginal discharge 12/01/2024 Acute vaginitis (ICD-10 - N76.0) BV 12/01/2024 Urogenital trichomoniasis, unspecified (ICD-10 - A59.00) 12/01/2024 Acute candidiasis of vulva and vagina (ICD-10 - B37.31) Plan Of Treatment Next Appt Details Follow Up: prn, Reason: Procedure Notes * Category Sub-Category Detail Notes Wet Mount Clue cells None seen Hyphae No hyphae or buds Trichomonas None seen Progress Notes * VIOLETTE RODRIGUEZNDOB:[birth year] (29 yo F)Acc No.[id number]:12/01/2024 PROGRESS NOTES Patient: LIVE BENITES Provider: Krista BAKER MD :1995 A ge:29 Y S ex:Female Date:12/01/2024 Address:[address] [place] [address] Pcp:NILS HOLLOWAY NP Subjective: * Chief Complaints: * 1 . DISCHARGE. * HPI: G YN (Problems): 29 year old female presents with c/o Vaginitis (Symptoms of):.? * ROS: G eneral/Constitutional: Patient denies f ever, chills, weight gain, weight loss.? W omen Only: Denies P ainful intercourse. A dmits V aginal discharge/itching. G enitourinary: Denies D ifficulty urinating. D enies F requent urination. D enies P ainful urination. * Medical History: A nxiety disorder, unspecified, COVID-19, Displacement of intrauterine contraceptive device, initial encounter, Trichomoniasis, unspecified, Amenorrhea, unspecified, Other melanin hyperpigmentation. 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 S exual activity c urrently sexually active, with men. L ast Pap Smear: NIL, No Ecc's. A bnormal Pap Smear: n o history of abnormal pap smears. L MP and menses O cc menses, spotting, None w/ IUD. H istory of STD's: T richomoniasis (Trich). B irth Control: Jonathan martinez, placed in early [address] Rothman. M enarche 1 3. G ardasil: h as not had vaccine. * OB History: T otal pregnancies 2 . T otal living children 1 . N VD 1 . A bortion(s) 1 . P regnancy # 1: n ormal spontaneous vaginal delivery (), 04/04/2016, Abel (boy), 6lb 1oz, hyperemesis. P regnancy # 2: e lective terminations of (ETOP), medically, no complications. * Medications: T aking Mirena (52 MG) 20 MCG/24HR Intrauterine Device as directed Intrauterine , Notes to Pharmacist: inserted 2018, Taking Ibuprofen 600 MG Tablet 1 tablet with food or milk as needed Orally Three times a day , Notes to Pharmacist: prn * Allergies: L atex: Swelling - Allergy. Objective: * Vitals: * Examination: G enitourinary - Female: GENERAL APPEARANCE: a lert, oriented, no apparent distress, supplier diversity director present in room. ABDOMEN: soft, non-tender, no mass. EXTERNAL GENITALS: . URETHRAL MEATUS: normal. URETHRA: normal. VAGINA: . ANUS/PERINEUM: appears normal. CERVIX: . UTERUS: normal size, mobile, non tender. OVARIES: no masses felt in adnexa, nontender. ? Assessment: * Assessment: 1. O ther specified noninflammatory disorders of vagina - N89.8 (Primary) N otes :Vaginal discharge 2 . A cute vaginitis - N76.0 N otes :BV 3 . U rogenital trichomoniasis, unspecified - A59.00 4 . A cute candidiasis of vulva and vagina - B37.31 Plan: * Treatment: * Procedures: W et Mount: Clue cells N one seen. Hyphae N o hyphae or buds. Trichomonas N one seen. * Follow Up: p rn * Images: Billing Information: * Visit Code: * Procedure Codes: * Electronic signature of DINA BAKER MD on 07/25/2025 at 09:51 PM EST Sign off status: Pending * Provider: Krista BAKER MD Date: 0 12/01/2024 Generated for Jane nguyen/Lu/Kobeitting on: 09/25/2024 09:51 PM EST History and Physical Notes * Examination Category Sub-Category Detail Notes Category Not es Genitourinary - Female ABDOMEN: soft, non-tender, no mass EXTERNAL GENITALS: VAGINA: CERVIX: UTERUS: normal size, mobile, non tender OVARIES: no masses felt in ad nexa, nontender GENERAL APPEARANCE: alert, oriented, no apparent distress, supplier diversity director present in room URETHRAL MEATUS: normal URETHRA: normal ANUS/PERINEUM: appears normal
--- OUTSIDE RECORDS SUMMARY | 2025-07-20 05:00 | XMS_ITS ---
Author Organization [facility] Address [address] [place] [address] Care Team Providers Care Staking Engineer Name Role Phone NILS HOLLOWAY NP Primary Care Provider Unavail able DINA BAKER Unavailable [phone] Allergies Allergen (clinical drug ingredient) Drug/Non Drug Allergy documented on EMR Reaction Allergy Type Onset Date Status Latex Latex Swelling Allergy Active Results Component Value Reference Range Notes Test, Urine Reviewed date:07/20/2025 03:31:15 PM Interpretation: Performing Lab: Notes/Report: Test, Urine POS REASON FOR VISIT + HOME PREG TEST Medications Medication SIG (Take, Route, Fr equency, Duration) Notes Start Date End Date Status miSOPROStol 200 MCG as directed Orally 8 -12 hrs prior to appointment; Duration: 1 days 04/23/2025 Not-Taking Ibuprofen 600 MG 1 tablet with food o r milk as needed Orally Three times a day prn Not-Taking Terconazole 0.8 % 1 applicatorful at b edtime Vaginal Once a day; Duration: 3 days 12/05/2024 Not-Taking Social History Tobacco Use: Social History Observation Description Date Details (start date - stop date) Never Smoker NA - NA Sexual History Question Answer Notes Had sex in the past 12 months (vaginal, oral, or anal)? Yes with Men only Tobacco use other than smoking: Question Answer Notes Are you an other tobacco user? No AUDIT-C (Standard) Question Answer Notes Did you have a drink contain ing alcohol in the past year? Yes How often did you have six o r more drinks on one occasion in the past year? 2 to 4 times a month (2 points) How many drinks did you have on a typical day when you were drinking in the past year? 7 to 9 drinks (3 points) How often did you have a dri nk containing alcohol in the past year? 2 to 4 times a month (2 points) Points 7 Interpretation Positive Tobacco Control (Standard) Question Answer Notes Tobacco use: Nonsmoker Vital Signs Height 62 in 07/20/2025 Weight 115 lbs 07/20/2025 BMI 21.03 kg/m2 07/20/2025 Blood pressure systolic 132 mm Hg 07/20/20 25 Blood pressure diastolic 78 mm Hg 025 Temperature 97.1 degrees Fahrenheit 07/20/20 25 Encounters Encounter Location Date Provider Diagnosis [address] [place] [address] 07/20/2025 DINA BAKER Amenorrhea, unspecified N91.2 Assessments Encounter Date Diagnosis (ICD Code) Assessment Notes Treatment Notes Treatment Clinical Notes Section Notes 07/20/2025 Amenorrhea, unspecified (ICD-10 - N91.2) Discussed Do's and Don't's of early , including importance of eating the rainbow, organic if possible, staying hydrated, getting enough rest. Encouraged to exercise and take vitamins. Encouraged to avoid alcohol, tobacco, unnecessary medications. Discussed dietary restrictions. 07/20/2025 Other 32 minutes were spent on the day of the visit reviewing and prepping the chart, obtaining the HPI, examining the patient, counseling the patient on the diagnosis, ordering/refilli ng medications, ordering tests and procedures and documenting this encounter. Plan Of Treatment Treatment Notes Assessment Notes Amenorrhea, unspecified Discussed Do's a nd Don't's of early , including importance of eating the rainbow, organic if possible, staying hydrated, getting enough rest. Encouraged to exercise and take vitamins. Encouraged to avoid alcohol, tobacco, unnecessary medications. Discussed dietary restrictions. Other 32 minutes were spen t on the day of the visit reviewing and prepping the chart, obtaining the HPI, examining the patient, counseling the patient on the diagnosis, ordering/refilling medications, ordering tests and procedures and documenting this encounter. Next Appt Details Follow Up: prn, Reason: Progress Notes * CARROLL RODRIGUEZOB:[birth year] (29 yo F)Acc No.[id number]:07/20/2025 PROGRESS NOTES Patient: LIVE BENITES Provider: Krista BAKER MD :1995 A ge:29 Y S ex:Female Date:07/20/2025 Address:[address] [place], [place] [id number] Pcp:NILS HOLLOWAY NP Subjective: * Chief Complaints: * + HOME PREG TEST * HPI: C onstitutional: Live is a 29 yo with LMP 06/21/25, that lasted only about 4 days (usually 5 days) who presents to the office with a positive home test, done on 07/16/25. She has been in state of good health. She has not been taking Vitamins/Folic Acid. She is happy, but still processing her feelings a bout this . She has the following concerns: hyperemesis with the last . She is partnered with [employer]. * ROS: g eneral: nausea/vomiting y es. G eneral/Constitutional: Admits F atigue. B reast: Admits B reast pain. D enies B reast swelling. D enies N ipple discharge. W omen Only: Admits M issed period(s). D enies V aginal discharge/itching. G enitourinary: Denies A bdominal pain/swelling. 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 S exual activity c urrently sexually active, with men. L ast Pap Smear: NIL, No Ecc's. A bnormal Pap Smear: n o history of abnormal pap smears. L MP and menses 1 08/22/24, spotting, Occ menses, spotting, None w/ IUD. H istory of STD's: T richomoniasis (Trich). B irth Control: Jonathan martinez removed 04/24/25, placed in early [address] Rothman. [...] terminations of (ETOP), medically, no complications. * Surgical History: D eviated septum repair 07/08/25 * Hospitalization/Major Diagno stic Procedure: 1 Vaginal Delivery * Family History: M other: alive 49 yrs, migraines, ?prediabetic. F ather: alive 49 yrs, estranged. P aternal uncle: , colon cancer. M aternal uncle: , from colon cancer. S on Abel: alive 9 yrs, well. Has 5 brothers and 8 sisters - all share only one parent Denies family history of breast, uterine or ovarian cancers. * Social History: T obacco Use: T obacco use other than smoking A re you an other tobacco user? N o Tobacco Control (Standard) T obacco use: N onsmoker S exual History: S exual History H ad sex in the past 12 months (vaginal, oral, or anal)? Y es w ith M en only Details of Sexual History A re you sexually active? Y es D rugs/Alcohol: D rugs H ave you used drugs other than those for medical reasons in the past 12 months? Y es M arijuana? Y es smokes - encouraged to use non-smoking options M iscellaneous: Vy wallace: yes. Domestic violence: no. Home smoke detector use: yes, smoke detectors, carbon monoxide detector. Housing: renting. Living with: son. Marital status: single. Natural support system: yes. 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 Pets: dogs: 1 [place]as. Sexual abuse: no. Sexually active: yes. Verbal abuse: no. D rug/Alcohol: A DANAY-C (Standard) D id you have a drink containing alcohol in the past year? Y es H ow often did you have six or more drinks on one occasion in the past year? 2 to 4 times a month (2 points) H ow many drinks did you have on a typical day when you were drinking in the past year? 7 to 9 drinks (3 points) H ow often did you have a drink containing alcohol in the past year? 2 to 4 times a month (2 points) P oints 7 I nterpretation P ositive * Medications: N ot-TakingIbuprofen 600 MG Tablet 1 tablet with food or milk as needed Orally Three times a day , Notes to Pharmacist: prnTerconazole 0.8 % Cream 1 applicatorful at bedtime Vaginal Once a day miSOPROStol 200 MCG Tablet as directed Orally 8-12 hrs prior to appointment Not-Taking Ibuprofen 600 MG Tablet 1 tablet with food or milk as needed Orally Three times a day , Notes to Pharmacist: prnNot-Taking Terconazole 0.8 % Cream 1 applicatorful at bedtime Vaginal Once a day Not-Taking miSOPROStol 200 MCG Tablet as directed Orally 8-12 hrs prior to appointment DiscontinuedMirena (52 MG) 20 MCG/24HR Intrauterine Device as directed Intrauterine , stop date 04/24/2025, Notes to Pharmacist: inserted 2019Medication List reviewed and reconciled with the patientDiscontinued Mirena (52 MG) 20 MCG/24HR Intrauterine Device as directed Intrauterine , stop date 04/24/2025, Notes to Pharmacist: inserted 2019Medication List reviewed and reconciled with the patient * Allergies: L atex: Swelling - Allergyno[Allergies Verified] Objective: * Vitals: H t: 62 in, Wt:115lbs, BMI:21.03Index, BP:132/78mm Hg, Temp:97.1F. 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 ABDOMEN: soft, non-tender, no mass. EXTERNAL GENITALS: normal. URETHRAL MEATUS: normal. VAGINA: healthy pink mucosa without any lesions. ANUS/PERINEUM: normal. CERVIX: downward, normal appearing, long/thick/closed, no cervical movement tenderness. UTERUS: normal size, mobile, non tender. OVARIES: no masses felt in adnexa. Assessment: * Assessment: 1. A menorrhea, unspecified - N91.2 (Primary) Plan: * Treatment: Value Reference Range P regnancy Test, Urine POS Notes: Discussed Do's and Don't's of early , including importance of eating the rainbow, organic if possible, staying hydrated, getting enough rest. Encouraged to exercise and take vitamins. Encouraged to avoid alcohol, tobacco, unnecessary medications. Discussed dietary restrictions.??2.?Others? Notes: 32 minutes were spent on the day of the visit reviewing and prepping the chart, obtaining the HPI, examining the patient, counseling the patient on the diagnosis, ordering/refilling medications, ordering tests and procedures and documenting this encounter.?? * Procedure Codes: 9 9459 PELVIC EXAMINATION * Preventive Medicine: ~ ~~~~~~~~~~~~~~~~~~~~~~~~~~~~~~~~~ Patient education: symptoms (The Basics) ~~~~~~~~~~~~~~~~~~~~~~~~~~~~~~~~~~ Written by the doctors and editors at [employer]ToDate ~~~~~~~~~~~~~~~~~~~~~~~~~~ How much do symptoms vary? ~~~~~~~~~~~~~~~~~~~~~~~~~~ Symptoms during are different from woman to woman. Also, a woman can have different symptoms from one to the next. Even so, there are certain symptoms that are common during . This article discusses symptoms that can happen during a normal, healthy . ~~~~~~~~~~~~~~~~~~~~~~~~~~~~~~~ What symptoms are common early in ? ~~~~~~~~~~~~~~~~~~~~~~~~~~~~~~~ Early in , sometimes even before a woman knows she is , common symptoms can include: - Nausea, with or without vomiting - This is called morning sickness, but it can happen at any time of the day. For most women, morning sickness lasts only the first few months of . - The breasts getting bigger and feeling painful - Needing to urinate more often than usual - Feeling more tired than usual - Mild cramping in the lower belly What symptoms can happen later in ? ~~~~~~~~~~~~~~~~~~~~~~~~~~~~~~~ Many different symptoms can happen later in . These can include: - Heartburn or indigestion - This can feel like a burning feeling in your chest or throat, or pain in your stomach or chest. - Constipation, which means trouble having bowel movements - Hemorrhoids, which are swollen veins in the rectum that can be painful or itchy - They might bleed a little when you have a bowel movement. - Stuffy nose and nosebleeds - Feeling short of breath - This can get worse slowly as your progresses. - Low back pain - Leg cramps - Trouble sleeping - Headaches - Bleeding from your gums - Needing to urinate more often than usual or during the night - Feeling tired - Your hair getting thicker - Mild swelling in your feet or ankles - Numbness or tingling in your hand, foot, or leg - Varicose veins, which are swollen and twisted veins - False contractions - Contractions are when the uterus tightens. This can cause pain and make the belly feel hard. False contractions, also called [place] contractions, do not mean you are in labor. These are different than true contractions, which do mean you are in labor. - Skin changes - Lots of different skin changes can happen during . Some of these include: -Skin color changes - Your palms might turn pink or red. Also, the skin on parts of your body can turn darker. This includes areas on your face or around your nipples (picture 1). -A dark line in the middle of your stomach from your belly button to your pubic area -Stretch aden - These look like red lines and are most common on the belly, breast, and thighs. -Spider veins - These look like tiny red spiderwebs on the skin. They are most common on the neck, face, upper chest, arms, and hands. -Skin tags, which are small growths of normal skin ~~~~~~~~~~~~~~~~~~~~~~~~~~ When should I call my doctor or photographer helper? ~~~~~~~~~~~~~~~~~~~~~~~~~~ You should call your doctor or photographer helper if you: - Have bleeding from your vagina - Have fluid leaking from your vagina - Don't feel your baby move around as much as it used to - Have back or belly pain that doesn't get better with things you can try yourself, such as resting or changing your position - Feel faint or dizzy - Have heartburn that doesn't get better when you take an antacid medicine - Have a headache that doesn't get better after you rest for an hour in a dark, quiet room - Have pain when you urinate or blood in your urine - Have a fever - Have contractions that get stronger and more frequent - Have pain when you breathe - See dark spots or flashes of light, or have blurry vision - Have concerns about a change in your health (for example, vomiting or a new rash) ~~~~~~~~~~~~~~~~~~~~~~~~~ Fruits and Vegetables - eat organic or not ~~~~~~~~~~~~~~~~~~~~~~~~~ EWG's* Dirty Dozen for 2023 _ __ __ __ __ __ __ __ __ If you can't afford to eat completely organic, these are the most important fruits and vegetables to be organic Strawberries Spinach Kale, jennifer and mustard greens Grapes Peaches Pears Nectarines Apples Amaya and hot peppers Cherries Blueberries Green beans _ __ __ __ __ __ __ __ __ __ EWG's* Clean Fifteen for 2023 _ __ __ __ __ __ __ __ __ __ If you can't afford to eat completely organic, these are the best options for non-organic fruits/vegetables Avocados Sweet corn Pineapple Onions Papaya Sweet peas (frozen) Asparagus Honeydew melon Kiwi Cabbage Watermelon Mushrooms Mangoes Sweet potatoes Carrots *EWG - Environmental Working Group. * Follow Up: p rn * Images: Billing Information: * Visit Code: 86055 Office Visit, Est Pt., Level 4. * Procedure Codes: 81612 PELVIC EXAMINATION. * Sign off status: Completed true * Provider: Krista BAKER MD Date: 09/20/2024 Generated for Jane nguyen/Lu/Mehreen on: 09/25/2024 09:51 PM EST History and Physical Notes * HPI (History of Present Illness) Category Sub-Category Detail Notes Category Not es Constitutional Live is a 29 yo with LMP 06/21/25, that lasted only about 4 days (usually 5 days) who presents to the office with a positive home test, done on 07/16/25. She has been in state of good health. She has not been taking Vitamins/Folic Acid. She is happy, but still processing her feelings about this . She has the following concerns: hyperemesis with the last . She is partnered with Moise. 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
--- NOTE | ~2025-07-25 | US_ITS ---
CLINICAL HISTORY: fall onto abdomen, 5 wks preg --- Additional Notes or Special Instructions: Called in @ 7401 US OB 1st Trimester transvaginal Comparison: None provided Findings: Single intrauterine . Gestational sac measures 4 mm. EGA: 4 weeks, 6 days. Cardiac activity: Not detected. No subchorionic bleed. Right ovary 2.3 x 3.6 x 2 cm. Left ovary 3.6 x 4.3 x 3.9 cm. Left corpus luteal cyst. IMPRESSION: Early single intrauterine estimated 4 weeks, 6 days gestational age by today's ultrasound criteria. This document has been electronically signed by: Rachele Gil MD on 07/25/2025 18:52:28
[2025-07-25 16:49] VITALS: BP 134/63; PULSE 100; RESP 18; TEMP 36.6; O2SAT 100; BMI 21.9
--- NOTE | 2025-07-25 16:49 | ED_ITS ---
HPI - General Adult General Chief complaint: Fall Stated complaint: Injury Time Seen by Provider: 07/25/25 21:28 Source: patient Mode of arrival: ambulatory Limitations: no limitations History of Present Illness ED Provider: Jaguar AYALA HPI narrative: The patient is a 29-year-old (one living child, one prior elective ) female at approximately 5 weeks gestation who presents after a ground- level fall earlier today. She was walking her Bel[place]ian roger on a leash when the dog suddenly chased a cat; the leash was wrapped around her wrist, and she was pulled forward and briefly slid on ice/snow. She denies any head trauma or loss of consciousness. Immediately afterward she noticed mild lower abdominal cramping. Pain is described as ?cramps,? non-severe, constant, and localized to the suprapubic region. She reports no associated nausea, vomiting, vaginal bleeding, or passage of fluid. She has not taken any medication for pain today. The patient reports she is currently taking vitamins, and has an initial OB visit is scheduled at the end of this month (8 weeks). The patient has not had a previous ultrasound of this . Related Data Previous Rx's ?Medication ?Instructions ?Recorded ibuprofen 600 mg tablet 600 mg PO TID PRN pain #30 t abs 05/18/21 clotrimazole 1 % topical cream 1 appl topical BID 4 we eks #45 07/13/23 grams amoxicillin 875 mg-potassium 1 tab PO BID 7 days #14 t abs 02/09/24 clavulanate 125 mg tablet Allergies Allergy/AdvReac Type Severity Reaction Status Date / Time latex (LATEX) Allergy Severe SWELLING Verified 07/25/25 16:52 Review of Systems 2 Review of Systems: Yes all other systems are reviewed and are negative PMFSH Social History Social History Advance Directives: No Advance Directives Information Provided: No Do you have a plan to hurt others: No Plan Physical Exam ED Vital Signs: Vital Signs - 24 hr 07/25/25 16:49 Temperature 98 F Pulse Rate 100 Respiratory Rate 18 Blood Pressure 134/63 Pulse Oximetry 100 Oxygen Delivery Method Room Air BMI result Body Mass Index 21.9 CONSTITUTIONAL: The patient appears non-toxic, well nourished and in no acute distress. Vital signs as documented. HEAD: Atraumatic, normocephalic. EYES: EOMs grossly intact, pupils equal, conjunctiva clear, no exudate. ENT: Nares patent, no discharge. Airway patent, no audible stridor, visible mucosa is pink and moist without noted lesions. NECK: trachea is midline, no obvious masses or gross abnormalities. CHEST: Symmetric movement, normal appearance. LUNGS: Non-labored work of breathing. CARDIAC: No evidence of hypoperfusion. ABDOMEN: Abdomen soft and non-tender x4 quadrants, no palpable masses or organomegaly. : Deferred. EXTREMITIES: Moves all extremities spontaneously without reported pain. No obvious injury or deformity noted. NEURO: Alert and oriented x3, CN II-XII appear grossly intact. Cerebellar Functioning grossly intact. Speech clear and appropriate. SKIN: Warm, dry, color appropriate. No rashes or lesions noted. Course Course Course Narrative: This is a Rapid Medical Examination (RME) performed by Heather Valdez PA-C in triage. Full HPI, ROS, assessment and treatment plan per primary provider in the Main ED. 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 Follows with OBGYN in [place] Had serum confirmation of . No ultrasound. no vaginal bleeing. Plan: labs, UA, US Medical Decision Making Medical Decision Making MDM Narrative: 10:09 PM 07/25/2025 (Heather AYALA): The patient is a 29-year-old (one living child, one prior elective ) female at approximately 5 weeks gestation who presents after a ground-level fall earlier today. She was walking her [place]ian roger on a leash when the dog suddenly chased a cat; the leash was wrapped around her wrist, and she was pulled forward and briefly slid on ice/snow. She denies any head trauma or loss of consciousness. Immediately afterward she noticed mild lower abdominal cramping. Pain is described as ?cramps,? non-severe, constant, and localized to the suprapubic region. She reports no associated nausea, vomiting, vaginal bleeding, or passage of fluid. She has not taken any medication for pain today. The patient reports she is currently taking vitamins, and has an initial OB visit is scheduled at the end of this month (8 weeks). The patient has not had a previous ultrasound of this . On exam patient has no tenderness of the abdomen, no other acute findings, is well-appearing. The patient was sent for a ultrasound which shows an intra-uterine consistent with 4 weeks 6 days; no subchorionic hemorrhage. Laboratory evaluation is reassuring, no leukocytosis, anemia, electrolyte abnormality, or DELMI. The patient's LFTs are unremarkable. The patient's beta hCG is 2100, consistent with gestational age. At this time seeing as patient has had no passage of fluid or vaginal bleeding, there is no indication for RhoGAM, additionally the patient is Rh positive and thus we will not require it should bleeding occur. Patient was educated at length regarding importance of monitoring symptoms for passage of fluid or blood, and return to the ED for re-evaluation if this occurs. Patient was also instructed to call her OBGYN and make them aware of the fall, and inquire if there is any need to move up her scheduled appointment. Patient will be discharged with Tylenol q.6 PRN. Patient appears reliable. Admission/Observation Consideration of admission/observation: Escalation of care including admission/observation considered Lab Data MDM Lab Attestation statement: I reviewed the patient's lab results. 07/25/25 17:17 07/25/25 17:17 Labs: Lab Results 07/25/25 Range/Units 17:17 WBC 10.7 (4.8-10.8) X10*3/uL RBC 4.73 (4.20-5.50) X10*6/uL Hgb 12.5 (12.0-16.0) g/dl Hct 37.3 (37.0-47.0) % MCV 78.9 L (80.0-98.0) fL MCH 26.4 L (27.0-33.0) pg MCHC 33.5 (31.0-35.0) g/dl RDW 12.7 (11.0-16.0) % Plt Count 193 (160-400) X10*3/uL MPV 11.0 (9.4-12.3) fL Immature Gran % (Auto) 0.5 H (0.0-0.4) % Neut % (Auto) 68.8 (45-73) % Lymph % (Auto) 18.7 L (20-40) % Seminole % (Auto) 9.2 (2-11) % Eos % (Auto) 2.1 (0-4) % Baso % (Auto) 0.7 (0-2) % Lymph # (Auto) 2.0 (1.2-4.9) X10*3/uL Seminole # (Auto) 1.0 (0.1-1.2) X10*3/uL Eos # (Auto) 0.2 (0.0-0.4) X10*3/uL Baso # (Auto) 0.1 (0.0-0.2) X10*3/uL Abs Immat Gran (auto) 0.05 H (0.00-0.03) X10*3/uL Absolute Neuts (auto) 7.4 (2.0-8.3) x10*3/uL Absolute Nucleated RBC 0.000 (0.0-0.012) X10*3/uL Nucleated RBC % (auto) 0.0 (0.0-0.2) /100WBC Sodium 140 (135-145) mmol/L Potassium 3.5 (3.3-5.1) mmol/L Chloride 108 (96-108) mmol/L Carbon Dioxide 24 (22-29) mmol/L Anion Gap 12 (12-20) BUN 15 (9-16) mg/dL Creatinine 0.77 (0.5-1.4) mg/dL Estim Creat Clear Calc 85.3 Estimated GFR > 60 Random Glucose 73 (60-115) mg/dL Calcium 9.1 D (8.4-10.2) mg/dL Magnesium 2.0 (1.6-2.6) mg/dL Total Bilirubin 0.2 (0.0-1.0) mg/dL AST 18 (5-31) U/L ALT 11 (0-31) U/L Alkaline Phosphatase 71 (39-117) U/L Total Protein 7.1 (6.5-8.0) g/dL Albumin 4.4 (3.5-5.0) g/dL Beta HCG, Quant 2106 mIU/mL Blood Type O Positive Antibody Screen NEGATIVE Radiology Impression Discussion of test interpretation with radiology: I have reviewed the radiologist's reading. Radiologist Impression: US OB 1st Trimester transvaginal Comparison: None provided Findings: Single intrauterine . Gestational sac measures 4 mm. EGA: 4 weeks, 6 days. Cardiac activity: Not detected. No subchorionic bleed. Right ovary 2.3 x 3.6 x 2 cm. Left ovary 3.6 x 4.3 x 3.9 cm. Left corpus luteal cyst. IMPRESSION: Early single intrauterine estimated 4 weeks, 6 days gestational age by today's ultrasound criteria. This document has been electronically signed by: Rachele Gil MD on 07/25/2025 18:52:28 Discharge Plan Discharge Clinical Impression: Fall Qualifiers: Encounter type: initial encounter Qualified Code(s): W19.XXXA - Unspecified fall, initial encounter Patient Disposition: Home, Self-Care Instructions: Fall Prevention (ED), (ED), Trauma During (ED) Additional Instructions: Thank you for choosing [facility]'s Emergency Department for your care today. Thankfully your fall today does not appear to have cause any traumatic injury. Your ultrasound today shows a intrauterine with a size consistent with the your expected gestational dates. There was no evidence of bleeding around the fetus. Your laboratory evaluation is also reassuring. At this time there is no indication for admission to the hospital or continued ED observation, and it is safe to discharge you home. Given your reassuring ultrasound, and lack of any vaginal bleeding or passage of fluid, there was no indication of an impending or active spontaneous miscarriage at this time. Please continue monitoring your symptoms and return to the emergency department if you develop any passage of fluid or vaginal bleeding. Please contact your OBGYN to inform them of your fall, and to discuss if there is any need to move up your scheduled appointment. You should take Tylenol 1000mg every 6 hours as needed for any additional pain. Please stay well hydrated and get plenty of rest. You can safely apply ice to any areas of discomfort for 20 minutes every hour. Please follow up with your OBGYN as well as your primary care physician for re- evaluation, additional management of your symptoms, and continued preventative care. If you do not have a primary care physician, please call the [facility] at [phone] to establish a new primary care physician. While waiting to establish your new primary care physician, you can call our [facility] at [phone] for non-emergency needs. Please return to the emergency department if you develop a severe or sudden change in your symptoms, a fever over 100.4 that does not improve with Tylenol or Ibuprofen, recurrent vomiting, or any other new or worsening symptoms or concerns. Prescriptions: No Action ibuprofen 600 mg tablet 600 mg PO TID PRN (Reason: pain) Qty: 30 0RF clotrimazole 1 % cream 1 appl topical BID 28 Days Qty: 45 0RF amoxicillin-pot clavulanate 875-125 mg tablet 1 tab PO BID 7 Days Qty: 14 0RF Referrals: Ermelinda Cam NP [Primary Care Provider, Medical] Clinical Impression: Fall Print Language: Brazilian
[2025-07-25 17:23] LABS: Hematocrit 37.3 % (37.0-47.0); Hemoglobin 12.5 g/dl (12.0-16.0); Imm Gran Abs Auto 0.05 X10*3/uL (0.00-0.03); Imm Gran Pct Auto 0.5 % (0.0-0.4); Lymphocytes Absolute Auto 2.0 X10*3/uL (1.2-4.9); MANUAL DIFF FLAG NO; Mean Corpuscular HGB Conc 33.5 g/dl (31.0-35.0); Mean Corpuscular Hemoglobin 26.4 pg (27.0-33.0); Mean Corpuscular Volume 78.9 fL (80.0-98.0); NRBC Abs Auto 0.000 X10*3/uL (0.0-0.012); NRBC Pct Auto 0.0 /100WBC (0.0-0.2); Platelet Count 193 X10*3/uL (160-400); Red Blood Count 4.73 X10*6/uL (4.20-5.50); White Blood Count 10.7 X10*3/uL (4.8-10.8)
[2025-07-25 17:44] LABS: Alanine Aminotransferase 11 U/L (0-31); Albumin Level 4.4 g/dL (3.5-5.0); Alkaline Phosphatase 71 U/L (39-117); Anion Gap 12 (12-20); Aspartate Amino Transferase 18 U/L (5-31); Blood Urea Nitrogen 15 mg/dL (9-16); Calcium 9.1 mg/dL (8.4-10.2); Carbon Dioxide 24 mmol/L (22-29); Chloride 108 mmol/L (96-108); Creatinine Clr Calc Pharmacy 85.3; Estimated Glomerular Filt Rate > 60; Magnesium 2.0 mg/dL (1.6-2.6); Potassium 3.5 mmol/L (3.3-5.1); Sodium 140 mmol/L (135-145); Total Protein 7.1 g/dL (6.5-8.0)
--- OUTSIDE RECORDS SUMMARY | 2025-07-25 21:50 | XMS_ITS | Clinical Summary ---
Author Organization [facility] Address [address] [place] [id number] Care Team Providers Care School Aide Name Role Phone Ermelinda Cam HAIR MACHINE OPERATOR Primary Care Provider [phone] Allergies Active Allergy Reactions Criticality Noted Date Comments Latex Swelling Medium 03/24/2025 Medications methylPREDNISolo ne (MEDROL DOSEPAK) 4 MG tabletIndication s:Rhinitis medicamentosa follow package directions 21 tablet 03/24/20 25 Active oxyCODONE (ROXICODONE) 5 MG immediate release tabletIndication s:Deviated nasal septum Take 1 tablet (5 mg total) by mouth every 4 (four) hours as needed for severe pain. Max Daily Amount: 30 mg 10 tablet 07/08/20 25 Active triamcinolone (NASACORT AQ) 55 MCG/ACT Aerosol nasal sprayIndications :Hypertrophy of nasal turbinates 2 sprays into each nostril daily. 1 each 3 07/14/20 25 025 Active triamcinolone (NASACORT AQ) 55 MCG/ACT Aerosol nasal sprayIndications :Chronic rhinitis 2 sprays into each nostril daily. 1 each 3 06/09/20 25 025 Discontinued cephALEXin (KEFLEX) 250 mg capsuleIndicatio ns:Deviated nasal septum Take 1 capsule (250 mg total) by mouth 3 (three) times a day. 21 capsule 07/08/20 25 025 Active Problems No known active problems Encounters Date Type Department Care Team Description 07/14/2025 9:15 AM EST Office Visit [facility] [address], [place] [address] Robbie Thompson MD Hypertrophy of nasal turbinates (Primary Dx); Deviated nasal septum 07/03/2025 Scanned Document [facility] [address] [place] [address] Robbie Thompson MD 06/11/2025 CC Surg Order [facility] [address] [place] [address] Robbie Thompson MD 06/09/2025 12:30 PM EDT Office Visit [facility] [address] [address] Robbie Thompson MD Deviated nasal septum (Primary Dx); Hypertrophy of nasal turbinates; Chronic rhinitis 04/30/2025 10:30 AM EDT Office Visit [facility] [address] [address] Robbie Thompson MD Chronic pansinusitis (Primary Dx); Deviated nasal septum; Hypertrophy of nasal turbinates from Last 3 Months Immunizations Immunization Administration Dates Next Due Tdap 01/08/2024 Social History Tobacco Use Types Packs/Day Years Used Date Smoking Tobacco: Never Passive Smoke Exposure: Never Smokeless Tobacco: Never Tobacco Cessation:Counseling Given: Not Answered Comments Unknown Sex and Gender Information Value Date Recorded Sex Assigned at Not on file Legal Sex Female 11:30 AM EST Gender Identity Not on file Sexual Orientation Not on file Last Filed Vital Signs Vital Sign Reading Time Taken Comments Blood Pressure - - Pulse - - Temperature - - Respiratory Rate - - Oxygen Saturation - - Inhaled Oxygen Concentration - - Weight 49 kg (108 lb) 07/14/2025 9:03 AM EST Height 157.5 cm (5' 2 ) 07/14/2025 9:03 AM EST Body Mass Index 19.75 07/14/2025 9:03 AM EST Plan of Treatment Upcoming Encounters Date Type Department Care Team (Late st Contact Info) Description 10/15/2025 9:30 AM EST Office Visit [facility] [address] [address] Robbie Thompson MD [address] [place] [address] Health Maintenance Due Date Last Done Comments Hepatitis C Virus Screening 1995 HIV Screening 11/24/2008 Hepatitis B Vaccines (1 of 3 - 19+ 3-dose series) 11/24/2014 Pap Smear (Ages 21-65) 11/24/2016 Influenza Vaccine 03/20/2025 COVID-19 Vaccine (3 - 2024-2 6 season) 2025 12/31/2020, 12/10/2020 DTaP/Tdap/Td Vaccines (2 - T d or Tdap) 01/07/2034 01/08/2024 HPV Vaccines (No Doses Required) Completed Pneumococcal Vaccine: Pediatric (0-5 Years) and At-Risk Patients (6 to 49 Years) Aged Out No longer eligible b ased on patient's age to complete this topic Procedures Procedure Name Priority Date/Time Associated Diagnosis Comments CT SINUSES W/O CONTRAST Routine 05/28/2025 10:34 AM EDT Chronic pansinusitis from Last 3 Months Results * CT Sinuses w/o contrast (05/28/2025 10:34 AM EDT) Anatomical Region Laterality Modality Face Computed Tomogra phy 05/28/2025 10:1 5 AM EDT 05/28/2025 10:15 AM EDT Impressions 06/04/2025 2:30 PM EDT 1. Mucous retention cysts in the maxillary sinuses. There is mucosal thickening along the ostiomeatal unit on the right. 2. The nasal septum is deviated to the left with spur. There is mild hypertrophy of the nasal mucosa. This exam was performed according to our departmental dose-optimization program which includes automated exposure control, adjustment of the mA and/or kV according to patient size and/or use of iterative reconstruction technique. Electronically signed by: Colby Julian MD 06/04/2025 02:30 PM EDT Thank you for referring your patient to us, Colby Julian MD [phone] (Electronically Signed - 06/04/2025 14:30) Copy: Anabell TOMPKINS 06/04/2025 2:30 PM EDT EXAMINATION: CT LANDMARX SINUS WITHOUT CONTRAST CLINICAL INDICATION: Female, 29 years old. Chronic Sinusitis TECHNIQUE: Axial CT of the paranasal sinuses with multiplanar reformations. CONTRAST: None. COMPARISON: None FINDINGS: Paranasal Sinuses: The frontal sinuses and frontoethmoidal junctions are clear. The ethmoid air cells are clear. The ethmoid roofs are symmetric in height. The lamina papyracea are intact. Ethmoids are compatible with Keros type II There are mucous retention cyst in the maxillary sinuses. There is mucosal thickening along the ostiomeatal unit on the right. Left-sided is clear. The infundibula are bordered superiorly by the inferior orbital stevenson. The sphenoid sinuses are clear. The septum of the sphenoid sinus inserts on the right carotid canal which is well covered with bone. The sphenoethmoidal junctions are clear. There is a sellar type of sphenoid sinus. Nasal Septum and Nasal Cavity: The nasal septum is deviated to the left spur. There is mild hypertrophy of the nasal mucosa. Temporal Bone: The mastoid air cells and middle ear cavities are clear. Procedure Note Colby Julian MD - 06/04/2025 EXAMINATION: CT LANDMARX SINUS WITHOUT CONTRAST CLINICAL INDICATION: Female, 29 years old. Chronic Sinusitis TECHNIQUE: Axial CT of the paranasal sinuses with multiplanarreformations. CONTRAST: None. COMPARISON: None FINDINGS: Paranasal Sinuses: The frontal sinuses and frontoethmoidal junctions are clear. The ethmoid air cells are clear. The ethmoid roofs are symmetric inheight. The lamina papyracea are intact. Ethmoids are compatible withKeros type II There are mucous retention cyst in the maxillary sinuses. There is mucosalthickening along the ostiomeatal unit on the right. Left-sided is clear.The infundibula are bordered superiorly by the inferior orbital stevenson. The sphenoid sinuses are clear. The septum of the sphenoid sinus insertson the right carotid canal which is well covered with bone. Thesphenoethmoidal junctions are clear. There is a sellar type of sphenoidsinus. Nasal Septum and Nasal Cavity: The nasal septum is deviated to the leftspur. There is mild hypertrophy of the nasal mucosa. Temporal Bone: The mastoid air cells and middle ear cavities are clear. IMPRESSION: 1. Mucous retention cysts in the maxillary sinuses. There is mucosalthickening along the ostiomeatal unit on the right. 2. The nasal septum is deviated to the left with spur. There is mildhypertrophy of the nasal mucosa. This exam was performed according to our departmental dose-optimizationprogram which includes automated exposure control, adjustment of the mAand/or kV according to patient size and/or use of iterative reconstructiontechnique. Electronically signed by: Colby Julian MD 06/04/2025 02:30 PM EDT RPWorkstation: [id number] Thank you for referring your patient to us, Colby Julian MD [phone] (Electronically Signed - 06/04/2025 14:30) Copy: PATIENT , us Robbie Thompson MD IMG CT ORDERABLES Final Resul t from Last 3 Months Insurance [employer] HMO/POS Care Teams School Aide Relationship Specialty Start Date End Date Ermelinda Cam NP [address] [facility] [address] [place] [address] PCP - General Family Medicine 03/24/25
--- OUTSIDE RECORDS SUMMARY | 2025-07-25 21:50 | XMS_ITS | Encounter Summary ---
Author Organization [facility] Address [address] [place] [address] Care Team Providers Care Pin Machine Operator Name Role Phone Ermelinda Cam NP Primary Care Provider Encounter Details Date Type Department Care Team (Late Contact Info) Description 07/03/2025 Scanned Document [facility] [address] [place] [address] Robbie Thompson MD [address] [place] [phone] Social History Tobacco Use Types Packs/Day Years Used Date Smoking Tobacco: Never Passive Smoke Exposure: Never Smokeless Tobacco: Never Comments Unknown Sex and Gender Information Value Date Recorded Sex Assigned at Not on file Legal Sex Female 11:30 AM EST Gender Identity Not on file Sexual Orientation Not on file documented as of this encounter Plan of Treatment Upcoming Encounters Date Type Department Care Team (Late Contact Info) Description 10/15/2025 9:30 AM EST Office Visit [facility] [address] [facility], [place] [phone] Robbie Thompson MD [address] [place] [phone] documented as of this encounter Visit Diagnoses Not on filedocumented in this encounter Care Teams Pin Machine Operator Relationship Specialty Start Date End Date Ermelinda Cam NP [address] [facility] [address] [place] [address] PCP - General Family Medicine 03/24/25 documented as of this encounter
--- OUTSIDE RECORDS SUMMARY | 2025-07-25 21:50 | XMS_ITS | Clinical Summary ---
Author Organization [facility] Address [address] [place] [address] Care Team Providers Care Supervisor Refining Name Role Phone Unavailable Primary Care Provider Unavailabl e Surgical History Surgery Date Site/Laterality Comments OTHER SURGICAL HISTORY PROCEDURE: DENIES PREVIOUS SURGERY Medical History Medical History Date Comments Chronic neck and back pain DX:Ch ronic neck and back pain Family History Medical History Relation Name Comments Breast cancer Maternal Grandmother Breast cancer Paternal Grandmother Asthma Son Colon cancer Neg Hx Ovarian cancer Neg Hx Uterine cancer Neg Hx Relation Name Status Comments Brother Alive Father Alive Maternal Grandmother Mother Alive Paternal Grandmother Sister Alive Son Alive Social History Tobacco Use Types Packs/Day Years Used Date Smoking Tobacco: Never Smokeless Tobacco: Never Alcohol Use Standard Drinks/Week Comments No 0 (1 standard drink = 0.6 oz pur e alcohol) Comments Unknown Sex and Gender Information Value Date Recorded Sex Assigned at Not on file Legal Sex Female 5:05 AM EST Gender Identity Not on file Sexual Orientation Not on file Obstetrics History Plan of Treatment Health Maintenance Due Date Last Done Comments DTaP,Tdap,and Td Vaccines (1 - Tdap) 11/24/2014 Hepatitis B Vaccines (1 of 3 - 19+ 3-dose series) 11/24/2014 Cervical Cancer Screening: P ap Smear 11/24/2016 HPV Vaccines (1 - 3-dose SCD M series) 11/24/2022 Depression Screening 08/20/2024 COVID-19 Vaccine ( - 2024-2 6 season) 2025 Influenza Vaccine (#1) 2025 RSV Immunization Adult Patie nts (1 - 1-dose 75+ series) 11/24/2070 HIB Vaccines Aged Out No longer eligi ble based on patient's age to complete this topic Hepatitis A Vaccines Aged Out No long er eligible based on patient's age to complete this topic IPV Vaccines Aged Out No longer eligi ble based on patient's age to complete this topic MMR Vaccines Aged Out No longer eligi ble based on patient's age to complete this topic Meningococcal ACWY Vaccine Aged Out N o longer eligible based on patient's age to complete this topic Meningococcal B Vaccine Aged Out No l onger eligible based on patient's age to complete this topic Pneumococcal Vaccine: Pediat rics (0 to 5 Years) and At-Risk Patients (6 to 49 Years) Aged Out No longer eligible b ased on patient's age to complete this topic RSV Immunization Patients Un vlad 20 months Aged Out No longer eligible b ased on patient's age to complete this topic Varicella Vaccines Aged Out No longer eligible based on patient's age to complete this topic
--- OUTSIDE RECORDS SUMMARY | 2025-07-25 21:51 | XMS_ITS ---
Author Name [facility] Organization Unknown History of Medication Use Medication Directions Dispensed Refills Start Date End Date Stat us triamcinolone (NASACORT AQ) 55 MCG/ACT Aerosol nasal spray 2 sprays into each nostril daily. 06/09/2025 active ciprofloxacin (CIPRO) 500 MG tablet Take 1 tablet (500 mg total) by mouth 2 (two) times a day. 04/30/2025 active doxycycline (ADOXA) 100 MG tablet Take 1 tablet (100 mg total) by mouth every 12 (twelve) hours around the clock. 03/24/2025 active fluticasone (FloNASE) 50 mcg/spray nasal spray 2 sprays into each nostril daily. 03/24/2025 active methylPREDNISolone (MEDROL DOSEPAK) 4 MG tablet follow package directions 03/24/2025 active Allergies Allergen Reaction Severity Comment Documented Date Source Statu s LATEX SWELLING 03/24/2025 CCT active Problems Problem Status Onset Date Problem Type Date of Resoluti on Source Deviated nasal septum active EncounterDiagnosisAct [facility] Hypertrophy of nasal turbinates [facility] Immunizations Vaccine Date Source Lot Number Status Tdap 01/08/2024 CCT [id number] completed Encounters Encounter Type Encounter Reason Primary Diagnosis Location Date Ambulatory Post-op Post-op [facility] 07/14/2025 Ambulatory [facility] Other acute sinusitis [facility] 07/08/2025 Ambulatory Nasal Congestion Nasal Congestion [facility] [email or web address] [facility] [email or web address] 06/09/2025 Ambulatory Nasal Congestion Nasal Congestion [facility] [email or web address] [facility] [employer] 04/30/2025 Ambulatory [place] [employer] 03/24/2025 Care Team Organization Name Specialty Phone Email Start Date End Da te [facility] 06/22/2025 [facility]/30[facility]2025 [facility] 03/25/2025 [facility] NILS [facility] 03/24/[address] [place] [employer] [facility] 01/16/2025
--- OUTSIDE RECORDS SUMMARY | 2025-07-25 21:51 | XMS_ITS | Patient Health Record ---
Author Organization [employer] [facility] Address [address] [place] [address] Care Team Providers [employer] Associate Name Role Phone NILS HOLLOWAY NP Primary Care Provider Unavail able DINA BAKER Unavailable [phone] Allergies Allergen (clinical drug ingredient) Drug/Non Drug Allergy documented on EMR Reaction Allergy Type Onset Date Status Latex Latex Swelling Allergy Active Results Component Value Reference Range Notes Test, Urine Reviewed date:07/20/2025 03:31:15 PM Interpretation: Performing Lab: Notes/Report: Test, Urine POS Chlamydia/GC Amplification Reviewed date:12/09/2024 03:48:37 PM Interpretation: Performing Lab:Divina Eddy, [address] [facility] [employer], [place], Phone - [phone], [facility] Notes/Report: Chlamydia trachomatis, JEWEL Negative Negative Neisseria gonorrhoeae, JEWEL Negative Negative PDF Report Reviewed date:12/09/2024 01:14:04 PM Interpretation: Performing Lab:Divina Eddy, [facility] [address], [place], Phone - [phone], Director [facility] Notes/Report: Reason For Referral No Information Medications Medication SIG (Take, Route, Fr equency, [...] (Standard) Question Answer Notes Tobacco use: Nonsmoker Problems Problem Type SNOMED Code ICD Code Onset Dates Problem Status W/U Status Risk Notes Problem Trichomoniasis (83828906) Trichomoniasis, unspecified (A59.9) Active confirmed Problem Anxiety disorder (765235718) Anxiety disorder, unspecified (F41.9) Active confirmed Problem Amenorrhea (59947283) Amenorrhea, unspecified (N91.2) Active confirmed Problem COVID-19 (265012929) COVID-19 (U07.1) Active confirmed Vital Signs Temperature 97.1 degrees Fahrenheit 07/20/2025 Blood pressure diastolic 78 mm Hg 07/20/2025 Height 62 in 07/20/2025 Blood pressure systolic 132 mm Hg 07/20/2025 Weight 115 lbs 07/20/2025 BMI 21.03 kg/m2 07/20/2025 Encounters Encounter Location Date Provider Diagnosis [address] [address] 12/01/2024 DINA BAKER Other specified noninflammatory disorders of vagina N89.8 ; Acute vaginitis N76.0 ; Urogenital trichomoniasis, unspecified A59.00 and Acute candidiasis of vulva and vagina B37.[address] [address] 08/22/2024 DINA BAKER Encounter for gynecological examination (general) (routine) without abnormal findings Z01.419 ; Encounter for screening for infections with a predominantly sexual mode of transmission Z11.3 and Presence of (intrauterine) contraceptive device Z97.[address] [address] 12/05/2024 DINA BAKER Acute candidiasis of vulva and vagina B37.31 and High risk heterosexual behavior Z72.[address] [address] 04/24/2025 DINA BAKER Encounter for remova l of intrauterine contraceptive device Z30.[address] [address] 07/20/2025 DINA BAKER Amenorrhea, unspecif ied N91.[address] [address] 04/23/2025 DINA BAKER Assessments Encounter Date Diagnosis (ICD Code) Assessment Notes Treatment Notes Treatment Clinical Notes Section Notes 08/22/2024 Encounter for screening for infections with a predominantly sexual mode of transmission (ICD-10 - Z11.3) 08/22/2024 Encounter for gynecological examination (general) (routine) without abnormal findings (ICD-10 - Z01.419) Discussed cervical cancer screening with cytology every 3 years as per ASCCP guidelines. Advised continued annual pelvic exams. Patient encouraged to increase her level of exercise. SBE technique encouraged/taug ht. Safe sexual practices and STI prevention discussed. 12/01/2024 Other specified noninflammatory disorders of vagina (ICD-10 - N89.8) Vaginal discharge 12/05/2024 High risk heterosexual behavior (ICD-10 - Z72.51) 12/05/2024 Acute candidiasis of vulva and vagina (ICD-10 - B37.31) 04/24/2025 Encounter for removal of intrauterine contraceptive device (ICD-10 - Z30.432) She may opt to return to an IUD at some point - she will call if she makes this decision 07/20/2025 Amenorrhea, unspecified (ICD-10 - N91.2) Discussed Do's and Don't's of early , including importance of eating the rainbow, organic if possible, staying hydrated, getting enough rest. Encouraged to exercise and take vitamins. Encouraged to avoid alcohol, tobacco, unnecessary medications. Discussed dietary restrictions. 12/01/2024 Acute vaginitis (ICD-10 - N76.0) BV 08/22/2024 Presence of (intrauterine) contraceptive device (ICD-10 - Z97.5) Continue Mirena until 2027 or until desires conception 12/01/2024 Urogenital trichomoniasis, unspecified (ICD-10 - A59.00) 12/01/2024 Acute candidiasis of vulva and vagina (ICD-10 - B37.31) 07/20/2025 Other 32 minutes were spent on the day of the visit reviewing and prepping the chart, obtaining the HPI, examining the patient, counseling the patient on the diagnosis, ordering/refill ing medications, ordering tests and procedures and documenting this encounter. Plan Of Treatment Pending Test Test Name Order Date Test, Urine 07/06/2023 Urinalysis 10/19/2023 CHLAMYDIA GC AMP PROBE 06/11/2023 ULTRASOUND: PELVIC W/TRANSVAGINAL 2021 ULTRASOUND: PELVIC W/TRANSVAGINAL 2022 Chlamydia/GC Amplification-[id number] 2024 Insurance Providers Payer Name Payer Address Payer Phone Subscriber Number Group Number Insured Name Patient Relationship to Insured Coverage Start Date Coverage End Date [employer] [address] [place] [address] [id number] LIVE RODRIGUEZ Self - patient is the insured Medical (General) History Medical History History ICD Code Anxiety disorder, unspecified F41.9 COVID-19 U07.1 Displacement of intrauterine contracepti ve device, initial encounter T83.32XA Trichomoniasis, unspecified A59.9 Amenorrhea, unspecified N91.2 Other melanin hyperpigmentation L81.4 Surgical History Surgery Date(Month/Year) Deviated septum repair 07/08/25 Hospitalization History Reason Date(Month/Year) 1 Vaginal Delivery
[2025-07-25 22:36] VITALS: BP 134/63; PULSE 100; RESP 18; TEMP 36.6; O2SAT 100
== END 2025-07-25 22:40 | disposition home or self-care (01) ==
PROVIDERS: Physician Assistant Medical; Emergency Provider Emergency Medicine; PCP Nurse Practitioner Family
DX: O26.91 Pregnancy related conditions, unspecified, first trimester (principal); R10.22 Pelvic and perineal pain left side; Z3A.01 Less than 8 weeks gestation of pregnancy; Z79.899 Other long term (current) drug therapy
CPT/HCPCS: 36415; 76801; 76817; 80053; 83735; 84702; 85025; 86850; 86900; 86901; 99282; 99284

== ENCOUNTER → 2025-07-25 16:51 | Outpatient (BNV) | payer BC, SELFPAY | PROVIDERS: PCP Nurse Practitioner Family; Visit Provider Student in an Organized Health Care Education/Training Program | DX: Z04.3 Encounter for examination and observation following other accident (principal); Z3A.01 Less than 8 weeks gestation of pregnancy | CPT/HCPCS: 76801; 76817 ==